=== PATIENT | male | born 1955 | race African-American/Black ===

== ENCOUNTER 2018-06-13 09:21 | Inpatient (IN) | payer MEDICARE ==
--- NOTE | 2018-06-07 11:23 | Diagnostic Imaging Report ---
EXAMINATION: CHEST 2 VIEWS INDICATION: Preop. Renal tumor. ^PREOP ORDER ^[id number] ^[id number] COMPARISON: None FINDINGS: TUBES and LINES: None. LUNGS: Lungs are well inflated. Mild chronic appearing changes in the lungs. There is no evidence of pneumonia or pulmonary edema. PLEURA: No pleural effusion or pneumothorax. HEART AND MEDIASTINUM: The cardiomediastinal silhouette is unremarkable. BONES AND SOFT TISSUES: No acute osseous lesion. Soft tissues are unremarkable. UPPER ABDOMEN: No free air under the diaphragm. IMPRESSION: No acute thoracic abnormality. Signed by: Dr. Eric Dejesus M.D. on 06/07/2018 11:19 AM
[2018-06-12 12:10] LABS: BASOPHILS % 0.4 % (0.0-1.0); EOSINOPHILS # (AUTO) 0.2 (0.0-0.4); EOSINOPHILS % 2.9 % (0.0-6.0); HEMATOCRIT 46.1 % (38.2-49.6); HEMOGLOBIN 15.6 g/dL (14.0-18.0); LYMPHOCYTES # (AUTO) 2.7 (1.0-3.2); LYMPHOCYTES % 39.6 % (18.0-39.1); MEAN CORPUSCULAR HEMOGLOBIN 31.7 pg (28-32); MEAN CORPUSCULAR HGB CONC 33.8 g/dL (31-35); MEAN CORPUSCULAR VOLUME 93.7 fL (81-99); MONOCYTES # (AUTO) 0.6 (0.2-0.8); MONOCYTES % 8.1 % (4.4-11.3); NEUTROPHILS # (AUTO) 3.3 (2.1-6.9); NEUTROPHILS % 48.9 % (38.7-80.0); PLATELET COUNT 200 x10e3/uL (140-360); RED BLOOD COUNT 4.92 x10e6/uL (4.3-5.7); RED CELL DISTRIBUTION WIDTH 12.1 % (11.7-14.4)
[2018-06-12 12:35] LABS: ANION GAP 13.8 mmol/L (8-16); BLOOD UREA NITROGEN 8 mg/dL (7-26); BUN/CREATININE RATIO 9 (6-25); CALCIUM 9.5 mg/dL (8.4-10.2); CARBON DIOXIDE 26 mmol/L (22-29); CHLORIDE 100 mmol/L (98-107); CREATININE, SERUM 0.89 mg/dL (0.72-1.25); EST GLOMERULAR FILTRATION RATE > 60 ML/MIN (60-); GLUCOSE 93 mg/dL (74-118); POTASSIUM 3.8 mmol/L (3.5-5.1); SODIUM 136 mmol/L (136-145)
[~2018-06-13] VITALS: Ht 182.9 cm; Wt 79.1 kg
[~2018-06-13 09:21] MED LIST: ACETAMINOPHEN650 MG PO; ADVAIR 250-501 EACH IH; DEXILANT60 MG PO; FAMOTIDINE20 MG PO; GABAPENTIN300 MG PO; IBUPROFEN400 MG PO; LACTULOSE20 GM/30 M PO; LISINOPRIL2.5 MG PO; NAPROXEN250 MG PO; PROVENTIL HFA6.7 GM IH; REVATIO20 MG PO; TAMSULOSIN HCL0.4 MG PO; ULTRAM50 MG PO
--- OUTSIDE RECORDS SUMMARY | 2018-06-13 09:23 | XMS REPORT | Clinical Summary ---
Author Author SHANICE FAGUO [facility] [employer] [facility] Address Unknown Phone Unavailable Care Team Providers Care Sales Supervisor Name Role Phone Abiodun Jaffe MD PCP Allergies No Known Allergies Medications End Date Status Medication Sig Dispensed Refills Start Date 03/12/2019 Active lisinopril Take 1 tablet 30 tablet 0 (PRINIVIL,ZESTRIL) 10 MG (10 mg total) 8 tablet by mouth daily. 03/12/2019 Active albuterol HFA (PROAIR Inhale 2 1 Inhaler 1 HFA) 90 mcg/actuation puffs by 8 inhaler mouth via inhaler every 4 (four) hours as needed (coughing). 03/17/2018 predniSONE (DELTASONE) 20 Take 3 15 tablet 0 MG tablet tablets (60 8 mg total) by mouth daily for 5 days. 03/17/2018 azithromycin (ZITHROMAX) Take 1 tablet 6 tablet 0 250 MG tablet (250 mg 8 total) by mouth daily for 5 days Take first 2 tablets together, then 1 every day until finished.. 03/22/2018 acetaminophen-codeine Take 1 tablet 30 tablet 0 (TYLENOL #3) 300-30 mg by mouth 8 per tablet every 6 (six) hours as needed for up to 10 days. Max Daily Amount: 4 tablets Active Problems Not on file Encounters Care Team Description Date Type Specialty Sanket Nayolr MD COPD with acute exacerbation (HCC) (Primary Dx); Atypical chest pain; Neck pain on left side; Cervical radiculopathy; Hypertensive urgency; Non compliance w medication regimen 03/12/2018 Emergency Emergency Medicine 03/12/2018 Orders Only General Internal Medicine 03/12/2018 Travel after 06/12/2017 Social History Date Tobacco Use Types Packs/Day Years Used Current Every Day Smoker Cigarettes 0.5 45 Smokeless Tobacco: Never Used Comments: trying to quit- down to 3-4 cig a day Alcohol Use Drinks/Week oz/Week Comments Yes 42 Cans of 25.2 6 pack beer a day beer Sex Assigned at Date Recorded Not on file Industry Job Start Date Occupation Not on file Not on file Not on file Travel End Travel History Travel Start No recent travel history available. Last Filed Vital Signs Time Taken Vital Sign Reading 03/12/2018 4:58 PM PUBLIC [employer]ATIONS [employer] Blood Pressure 149/90 03/12/2018 4:58 PM PUBLIC [employer]ATIONS WRITER Pulse 96 03/12/2018 2:15 PM PUBLIC [employer]ATIONS WRITER Temperature 36.7 C (98 F) 03/12/2018 4:58 PM PUBLIC [employer]ATIONS WRITER Respiratory Rate 26 03/12/2018 4:58 PM PUBLIC RELATIONS WRITER Oxygen Saturation 95% - Inhaled Oxygen - Concentration 03/12/2018 2:15 PM PUBLIC RELATIONS WRITER Weight 74.8 kg (165 lb) 03/12/2018 2:15 PM PUBLIC RELATIONS WRITER Height 182.9 cm (6') 03/12/2018 2:15 PM PUBLIC RELATIONS WRITER Body Mass Index 22.38 Plan of Treatment Not on file Procedures Comments Procedure Name Priority Date/Time Associated Diagnosis RHYTHM STRIP - SCAN 03/13/2018 3:04 PM PUBLIC RELATIONS WRITER B-TYPE NATRIURETIC FACTOR STAT 03/12/2018 (BNP) 3:16 PM PUBLIC RELATIONS WRITER TROPONIN I STAT 03/12/2018 3:16 PM PUBLIC RELATIONS WRITER BASIC METABOLIC PANEL (7) STAT 03/12/2018 3:16 PM PUBLIC RELATIONS WRITER XR CHEST 1 VIEW STAT 03/12/2018 PORTABLE/BEDSIDE 3:00 PM PUBLIC RELATIONS WRITER ED ECG INTERPRETATION Routine 03/12/2018 2:50 PM PUBLIC RELATIONS WRITER CBC W/PLT COUNT & AUTO STAT 03/12/2018 DIFFERENTIAL 2:46 PM PUBLIC RELATIONS WRITER CBC W/PLT COUNT & AUTO STAT 03/12/2018 DIFFERENTIAL 2:46 PM PUBLIC RELATIONS WRITER ECG 12-LEAD Routine 03/12/2018 2:09 PM PUBLIC RELATIONS WRITER Procedure Note - Interface, External Ris In - 03/12/2018 9:52 PM PUBLIC RELATIONS WRITER Ventricula r Rate 87 BPM Atrial Rate 87 BPM P-R Interval 122 ms QRS Duration 76 ms Q-T Interval 370 ms QTC Calculatio n(Bazett) 445 ms P [place] 86 degrees R [place] 86 degrees T [place] 81 degrees Normal sinus rhythm Right atrial enlargemen t Moderate voltage criteria for LVH, may be normal variant Borderline ECG No previous ECGs available ECG 12-LEAD STAT 03/12/2018 2:09 PM PUBLIC RELATIONS WRITER after 06/12/2017 Results * RHYTHM STRIP - SCAN (03/13/2018 3:04 PM PUBLIC RELATIONS WRITER) Narrative Performed At * Troponin I (03/12/2018 3:16 PM PUBLIC RELATIONS WRITER) Troponin I <0.01 0.00 - 0.03 ng/mL [facility] Specimen Blood - Arm, Right Performing Organization Address [facility] Phone Number [address] [address] [facility] * B-type Natriuretic Factor (BNP) (03/12/2018 3:16 PM PUBLIC RELATIONS WRITER) BNP 15 0 - 100 pg/mL [facility] Specimen Blood - Arm, Right Performing Organization Address [facility] Phone Number [address] [address] [facility] * Basic Metabolic Panel (03/12/2018 3:16 PM PUBLIC RELATIONS WRITER) Sodium 138 136 - 145 meq/L [facility] Potassium 3.9 3.5 - 5.1 meq/L [facility] Chloride 104 98 - 107 meq/L [facility] CO2 27 22 - 29 meq/L [facility] BUN 7 7 - 21 mg/dL [facility] Creatinine 0.87 0.57 - 1.25 mg/dL [facility] Glucose 88 70 - 105 mg/dL [facility] Calcium 9.4 8.4 - 10.2 mg/dL [facility] EGFR 108Comment: ESTIMATED GFR IS mL/min/1.73 sq m [facility] NOT ACCURATE CREATININE [facility] CLEARANCE IN PREDICTING GLOMERULAR FILTRATION RATE. ESTIMATED GFR IS NOT APPLICABLE FOR DIALYSIS PATIENTS. Specimen Blood - Arm, Right Performing Organization Address City/State/Zipcode Phone Number [facility] [address] [place] [address] [facility] * XR chest 1 view portable / bedside (03/12/2018 3:00 PM PUBLIC RELATIONS WRITER) Narrative Performed At [facility] TECHNIQUE: Frontal view of the chest. INDICATION: Shortness of breath. COMPARISON: None. FINDINGS: LINES/TUBES: None. LUNGS: The lungs are well inflated and clear. No consolidation or pulmonary edema. PLEURA: Mild blunting of the left costophrenic sulcus is favored to be due to pleural scarring. HEART AND MEDIASTINUM: The cardiomediastinal silhouette is within normal limits. Thoracic aorta is tortuous. SOFT TISSUES AND BONES: Unremarkable. IMPRESSION: The mild blunting of the left costophrenic sulcus is favored to be due to pleural scarring. A small left effusion is possible. Otherwise, no acute intrathoracic abnormality. Signed: Sj Zamudio MD Report Verified Date/Time:03/12/2018 15:46:55 Reading Location: [address] Body Reading Room Procedure Note Interface, External Ris In - 03/12/2018 3:49 PM PUBLIC RELATIONS WRITER FINAL REPORT TECHNIQUE: Frontal view of the chest. INDICATION: Shortness of breath. COMPARISON: None. FINDINGS: LINES/TUBES: None. LUNGS: The lungs are well inflated and clear. No consolidation or pulmonary edema. PLEURA: Mild blunting of the left costophrenic sulcus is favored to be due to pleural scarring. HEART AND MEDIASTINUM: The cardiomediastinal silhouette is within normal limits. Thoracic aorta is tortuous. SOFT TISSUES AND BONES: Unremarkable. IMPRESSION: The mild blunting of the left costophrenic sulcus is favored to be due to pleural scarring. A small left effusion is possible. Otherwise, no acute intrathoracic abnormality. Signed: Sj Zamudio MD Report Verified Date/Time: 03/12/2018 15:46:55 Reading Location: [facility] B1 C013Y CT Body Reading Room Performing Organization Address City/State/Zipcode Phone Number [facility] * ECG/EKG Interpretation (03/12/2018 2:50 PM PUBLIC RELATIONS WRITER) Narrative Performed At Sanket Naylor MD 03/12/20186:17 PM ECG/EKG Interpretation Date/Time: 03/12/2018 2:09 PM Performed by: Sanket Naylor MD Authorized by: Sanket Naylor MD The ECG was interpreted by ED physician. This ECG was not compared with previous ECG(s).The ECG is interpreted as sinus rhythm. Rate is normal rate. Heart rate is 87 BPM. Conduction: conduction normal. Other findings include: LVH. Clinical Impression: abnormal ECGECG reviewed and does not meet STEMI criteria. Patient tolerance: Patient tolerated the procedure well with no immediate complications * CBC with platelet count + automated diff (03/12/2018 2:46 PM PUBLIC RELATIONS WRITER) WBC 8.0 3.5 - 10.5 K/L [facility] RBC 5.04 4.63 - 6.08 M/L [facility] Hemoglobin 16.4 13.7 - 17.5 GM/DL [facility] Hematocrit 49.0 40.1 - 51.0 % [facility] MCV 97.2 (H) 79.0 - 92.2 fL [facility] MCH 32.5 (H) 25.7 - 32.2 pg [facility] MCHC 33.5 32.3 - 36.5 GM/DL [facility] RDW 12.0 11.6 - 14.4 % [facility] Platelets 229 150 - 450 K/CU MM [facility] MPV 10.3 9.4 - 12.4 fL [facility] nRBC 0 0 - 0 /100 WBC [facility] % Neutros 57 % [facility] % Lymphs 30 % [facility] % Monos 8 % [facility] % Eos 3 % [facility] % Baso 1 % [facility] # Neutros 4.59 1.78 - 5.38 K/L [facility] # Lymphs 2.44 1.32 - 3.57 K/L [facility] # Monos 0.65 0.30 - 0.82 K/L [facility] # Eos 0.27 0.04 - 0.54 K/L [facility] # Baso 0.07 0.01 - 0.08 K/L [facility] Immature 0 0 - 1 % [facility] Granulocytes-Relative [facility] Specimen Blood - Arm, Right Performing Organization Address City/State/Zipcode Phone Number [facility] [address] [place] [address] [facility] * ECG 12 lead (03/12/2018 2:09 PM PUBLIC RELATIONS WRITER) Narrative Performed At Ventricular Rate 87 BPM [facility] Atrial Rate 87 BPM P-R Interval 122 ms QRS Duration 76 ms Q-T Interval 370 ms QTC Calculation(Bazett) 445 ms P [place] 86 degrees R [place] 86 degrees T [place] 81 degrees Normal sinus rhythm Right atrial enlargement Moderate voltage criteria for LVH, may be normal variant Borderline ECG No previous ECGs available Confirmed by MD Delgado Mahboob ([id number]) on 03/13/2018 12:42:19 PM Procedure Note Interface, External Ris In - 03/13/2018 12:42 PM PUBLIC RELATIONS WRITER Ventricular Rate 87 BPM Atrial Rate 87 BPM P-R Interval 122 ms QRS Duration 76 ms Q-T Interval 370 ms QTC Calculation(Bazett) 445 ms P [place] 86 degrees R [place] 86 degrees T [place] 81 degrees Normal sinus rhythm Right atrial enlargement Moderate voltage criteria for LVH, may be normal variant Borderline ECG No previous ECGs available Confirmed by MD Delgado Mahboob ([id number]) on 03/13/2018 12:42:19 PM Performing Organization Address City/State/Zipcode Phone Number [facility] after 06/12/2017 Insurance Payer Benefit Subscriber ID Type Phone Address Plan / Group MEDICARE MEDICARE xxxxxxxxxxx Medicare PART B MEDICAID MEDICAID xxxxxxxxx Medicaid [facility] MED[facility] MEDICARE A xxxxxxxxxxx Medicare B
--- OUTSIDE RECORDS SUMMARY | 2018-06-13 09:23 | XMS REPORT | Clinical Summary ---
Author Author [facility] Organization [facility] Address Unknown Phone Unavailable Care Team Providers Care Oncology Specialist Name Role Phone Lisa Levy MD PCP Allergies No Known Allergies Medications End Date Status Medication Sig Dispensed Refills Start Date Active tamsulosin (FLOMAX) 0.4 Take 1 30 capsule 6 mg extended release capsule by 7 capsuleIndications: mouth daily. Benign non-nodular prostatic hyperplasia with lower urinary tract symptoms Active dexlansoprazole Take 1 30 capsule 2 (DEXILANT) 60 mg delayed capsule by 7 release mouth daily. capsuleIndications: Abdominal pain, epigastric Active lactulose (CONSTULOSE) 10 Take 30 mL by 946 mL 0 gram/15 mL oral mouth at 7 solutionIndications: bedtime Bloated abdomen, Pain of nightly For upper abdomen constipation and bloating. Active acetaminophen (TYLENOL) Take 1 tablet 30 tablet 0 500 mg tablet by mouth 7 every 6 hours as needed for Pain. Active naproxen (NAPROSYN) 500 Take 1 tablet 60 tablet 2 mg tabletIndications: by mouth 2 7 Chronic bilateral low times daily back pain without (with meals). sciatica Active famotidine (PEPCID) 20 mg Take 1 tablet 180 tablet 1 tabletIndications: by mouth 2 7 Gastritis and times daily. gastroduodenitis Active lisinopril (PRINIVIL) 5 Take 1 tablet 90 tablet 1 mg tabletIndications: by mouth 8 Essential hypertension, daily. benign Active sildenafil citrate Take 1 tablet 10 tablet 1 (VIAGRA) 100 mg by mouth as 8 tabletIndications: needed for Erectile dysfunction, Erectile unspecified erectile Dysfunction. dysfunction type Active albuterol 90 Inhale 2 20.1 g 6 mcg/actuation Puffs by 8 inhalerIndications: COPD, mouth 4 times severe, Pulmonary daily as emphysema, unspecified needed for emphysema type Wheezing. Active ibuprofen (MOTRIN) 600 mg Take 1 tablet 60 tablet 1 tabletIndications: by mouth 8 Chronic right-sided low every 8 hours back pain without as needed for sciatica Pain. Active gabapentin (NEURONTIN) Take 1 30 capsule 1 300 mg capsule by 8 capsuleIndications: mouth 3 times Chronic right-sided low daily. back pain without sciatica Active fluticasone-salmeterol Inhale 1 Puff 180 Each 6 (ADVAIR DISKUS) 250-50 by mouth 2 8 mcg/dose diskus times daily. inhalerIndications: COPD, severe, Pulmonary emphysema, unspecified emphysema type Active traMADol (ULTRAM) 50 mg Take 1 tablet 40 tablet 2 tabletIndications: DDD by mouth 8 (degenerative disc every 8 hours disease), cervical as needed for Pain. 03/21/2018 Discontinued ibuprofen (MOTRIN) 600 mg Take 1 tablet 60 tablet 1 tabletIndications: by mouth 7 Chronic right-sided low every 8 hours back pain without as needed for sciatica Pain. 08/02/2017 Discontinued traMADol (ULTRAM) 50 mg Take 1 tablet 30 tablet 0 tabletIndications: Mass by mouth 8 of skin of back every 6 hours as needed for Pain. 08/02/2017 Discontinued fluticasone-salmeterol Inhale 1 Puff 180 Each 3 (ADVAIR DISKUS) 250-50 by mouth 2 8 mcg/dose diskus times daily. inhalerIndications: COPD, severe, Pulmonary emphysema, unspecified emphysema type 08/02/2017 Discontinued albuterol (VENTOLIN Inhale 2 20.1 g 1 HFA,PROVENTIL HFA,PROAIR Puffs by 8 HFA) 90 mcg/actuation mouth 4 times inhalerIndications: COPD, daily as severe, Pulmonary needed for emphysema, unspecified Wheezing. emphysema type 09/08/2017 Discontinued albuterol (VENTOLIN Inhale 2 20.1 g 1 HFA,PROVENTIL HFA,PROAIR Puffs by 8 HFA) 90 mcg/actuation mouth 4 times inhalerIndications: COPD, daily as severe, Pulmonary needed for emphysema, unspecified Wheezing. emphysema type 09/08/2017 Discontinued fluticasone-salmeterol Inhale 1 Puff 180 Each 3 (ADVAIR DISKUS) 250-50 by mouth 2 8 mcg/dose diskus times daily. inhalerIndications: COPD, severe, Pulmonary emphysema, unspecified emphysema type 04/04/2018 Discontinued traMADol (ULTRAM) 50 mg Take 1 tablet 40 tablet 2 tabletIndications: Chest by mouth 8 wall pain every 8 hours as needed for Pain. 12/01/2017 Discontinued fluticasone-salmeterol Inhale 1 Puff 180 Each 6 (ADVAIR DISKUS) 250-50 by mouth 2 8 mcg/dose diskus times daily. inhalerIndications: COPD, severe, Pulmonary emphysema, unspecified emphysema type 12/01/2017 Discontinued albuterol (VENTOLIN Inhale 2 20.1 g 6 HFA,PROVENTIL HFA,PROAIR Puffs by 8 HFA) 90 mcg/actuation mouth 4 times inhalerIndications: COPD, daily as severe, Pulmonary needed for emphysema, unspecified Wheezing. emphysema type 03/21/2018 Discontinued fluticasone-salmeterol Inhale 1 Puff 180 Each 6 (ADVAIR DISKUS) 250-50 by mouth 2 8 mcg/dose diskus times daily. 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 Pulmonary emphysema 06/16/2017 Mass on back 04/27/2017 Overview: Added automatically from request for surgery [id number] Asbestos exposure 07/11/2016 Decreased strength 11/11/2015 Cocaine abuse 10/26/2015 Overview: Positive drug screen, September 2015 HNP (herniated nucleus pulposus), lumbar 12/05/2013 Foraminal stenosis of lumbosacral region 12/05/2013 Spondylosis of lumbosacral joint 12/05/2013 SI (sacroiliac) joint dysfunction 12/05/2013 Back pain, chronic 11/27/2013 Drug-seeking behavior 11/27/2013 Elevated blood pressure reading without diagnosis of hypertension 02/26/2010 Sebaceous cyst 02/26/2010 Overview: back Encounters Care Team Description Date Type Specialty Abdulazizshane Anny Appointment Related Questions (called pt no answer pt is already schedule for MD visit but not CT will need to schedule) 04/10/2018 Telephone [facility] Lisa Levy MD Essential hypertension, benign (Primary Dx); COPD, severe; DDD (degenerative disc disease), cervical; Prediabetes; Renal cell carcinoma of right kidney 04/04/2018 Office Visit Family Practice Lisa Levy MD Appointment Related Questions (Appointment Reminder - CONFIRMED) 04/04/2018 Telephone [facility] 03/30/2018 Travel Lupe Bloom MD Screening for colon cancer 03/29/2018 Orders Only [facility] Lupe Bloom MD Need for vaccination (Primary Dx); Chronic right-sided low back pain without sciatica; Screening for colon cancer; COPD, severe; Pulmonary emphysema, unspecified emphysema type 03/21/2018 Office Visit [facility] Viktor Gloria MD Renal cell carcinoma of right kidney (Primary Dx); NO SHOW ENCOUNTER 03/09/2018 Office Visit Urology Lisa Levy MD Chest wall pain 02/03/2018 Refill [facility] Abiodun Miller MD NO SHOW ENCOUNTER (Primary Dx) 01/09/2018 Office Visit Urology Sherron Patton RN 12/19/2017 Clinical Case Mgt Katie Dean MD Multiple pulmonary nodules (Primary Dx); Pulmonary sequestration; COPD, severe; Current smoker; Renal cell carcinoma, unspecified laterality; Pulmonary emphysema, unspecified emphysema type 12/01/2017 Office Visit Pulmonology Johann Roca MD Whigham, Cliff, MD Renal mass, right 11/21/2017 Hospital Encounter Johann Roca MD 11/21/2017 Hospital Lab Encounter Abiodun Miller MD Renal mass, right (Primary Dx) 11/07/2017 Office Visit Urology José Cheek MD Estrada-Y-Martin, Rosa M, MD Pulmonary sequestration (Primary Dx); Stage 3 severe COPD by GOLD classification; Cocaine abuse; Asbestos exposure; Renal mass; COPD, severe; Pulmonary emphysema, unspecified emphysema type 09/08/2017 Office Visit Pulmonology Lisa Levy MD 09/07/2017 Hospital Encounter 08/15/2017 Ancillary Radiology Procedure Lisa Levy MD Essential hypertension, benign (Primary Dx); COPD, severe; Pulmonary emphysema, unspecified emphysema type; Abnormal chest CT; Erectile dysfunction, unspecified erectile dysfunction type; Prediabetes; Chest wall pain; Colon cancer screening 08/02/2017 Office Visit Family Practice Katie Dean MD COPD, severe (Primary Dx); Pulmonary sequestration; Renal mass; Cocaine abuse; Asbestos exposure; Sebaceous cyst; Pulmonary emphysema, unspecified emphysema type 06/16/2017 Office Visit Pulmonology Lisa Levy MD Prediabetes (Primary Dx) 06/13/2017 Orders Only Family Practice after 06/12/2017 Immunizations Name Dates Previously Given Next Due Influenza Vaccine 03/31/2016 Influenza Vaccine, 03/14/2017 Seasonal, Injectable Influenza, 03/21/2018 Vaccine<FLUCELVAX>(Multi- Dose) Pneumoccoccal 01/02/2014 Family History Medical History Relation Name Comments Cancer Father Heart Mother Hypertension Mother Diabetes Sister Other Sister Relation Name Status Comments Father Mother heart attack (Age 65) Sister Social History Date Tobacco Use Types Packs/Day Years Used Current Every Day Smoker 0.5 Smokeless Tobacco: Never Used Tobacco Cessation: Ready to Quit: Yes Alcohol Use Drinks/Week oz/Week Comments Yes Sex Assigned at Date Recorded Not on file Industry Job Start Date Occupation Not on file Not on file Not on file Travel End Travel History Travel Start No recent travel history available. Last Filed Vital Signs Time Taken Vital Sign Reading 04/04/2018 9:30 AM [employer] [facility] Blood Pressure 129/89 04/04/2018 9:30 AM [employer] Pulse 100 04/04/2018 9:30 AM [employer] Temperature 36.7 C (98 F) 04/04/2018 9:30 AM [employer] Respiratory Rate 22 12/01/2017 12:21 PM CDT Oxygen Saturation 97% - Inhaled Oxygen - Concentration 04/04/2018 9:30 AM [employer] Weight 76.7 kg (169 lb) 04/04/2018 9:30 AM [employer] [facility] Height 182.9 cm (6') 04/04/2018 9:30 AM [employer] [facility] Body Mass Index 22.92 Plan of Treatment Health Maintenance Due Date Last Done Comments Colorectal Cancer Scrn 03/30/2019 03/30/2018, 05/17/2016 Annual (FIT/FOBT) Age 50 to 75 IMM Influenza Seasonal Completed 03/21/2018, 03/14/2017 Oct to June (>/=19 yrs) Procedures Comments Procedure Name Priority Date/Time Associated Diagnosis HEMOGLOBIN A1C Routine 04/04/2018 Prediabetes 10:48 AM [employer] TSH Routine 04/04/2018 Essential hypertension, 10:48 AM [employer] [facility] benign BASIC METABOLIC PANEL Routine 04/04/2018 Essential hypertension, 10:48 AM [employer] benign Prediabetes LIVER PROFILE Routine 04/04/2018 Essential hypertension, 10:48 AM [employer] benign LIPID PROFILE Routine 04/04/2018 Essential hypertension, 10:48 AM [employer] benign CBC/DIFF Routine 04/04/2018 Essential hypertension, 10:48 AM [employer] benign Renal cell carcinoma of right kidney OCCULT BLOOD ICT Routine 03/30/2018 Screening for colon 12:17 PM [employer] [facility] cancer FNA W/IMAGE Routine 11/21/2017 Renal mass, right 12:13 PM CDT BIOPSY OF Routine 11/21/2017 Renal mass, right KIDNEY,PERCUTANEOUS 12:13 PM CDT IR U/S GUIDED NEEDLE Routine 11/21/2017 Renal mass, right BIOPSY 12:13 PM CDT [facility] SURGICAL PATHOLOGY Routine 11/21/2017 12:00 PM CDT PT/INR Routine 11/21/2017 8:05 AM CDT CBC Routine 11/21/2017 8:05 AM CDT [facility] CYTOLOGY Routine 11/21/2017 12:00 AM CDT URINE CULTURE Routine 11/07/2017 Renal mass, right 1:54 PM CDT UREA NITROGEN/CREA Routine 09/09/2017 Renal mass, left 7:17 AM CDT TRANSTHORACIC ECHO (TTE) 09/07/2017 COPD, severe 1:55 PM CDT Pulmonary emphysema, unspecified emphysema type Chest wall pain CT ABDOMEN W AND W/O Routine 08/15/2017 Renal mass CONTRAST - KIDNEY 12:36 PM CDT CREATININE POC Routine 08/15/2017 11:48 AM CDT after 06/12/2017 Results * HEMOGLOBIN A1C (04/04/2018 10:48 AM [employer] [facility]) Hemoglobin A1c 6.3 (H) 4.3 - 6.1 % [facility]IC IMMUNOLOGY Est Average 134.1 mg/dL [facility] Gluc IMMUNOLOGY Specimen Blood Performing Organization Address [facility] Phone Number [facility] * TSH (04/04/2018 10:48 AM [employer] [facility]) TSH 0.54 (L) 0.57 - 3.74 uIU/mL BT MAIN-STATION 1 Specimen Blood Performing Organization Address [facility] Phone Number [facility] BT MAIN-STATION 1 * LIVER PROFILE (04/04/2018 10:48 AM [facility]) T Protein 7.3 6.0 - 8.3 g/dL BT MAIN-STATION 1 Albumin 4.2 4.2 - 5.5 g/dL BT MAIN-STATION 1 T Bilirubin 0.5 0.2 - 1.2 mg/dL BT MAIN-STATION 1 Alk Phos 59 34 - 104 U/L BT MAIN-STATION 1 AST 50 (H) 13 - 39 U/L BT MAIN-STATION 1 ALT 58 (H) 7 - 52 U/L BT MAIN-STATION 1 D Bilirubin 0.1 0.0 - 0.2 mg/dL BT MAIN-STATION 1 Specimen Blood Performing Organization Address [facility] Phone Number [facility] BT MAIN-STATION 1 * LIPID PROFILE (04/04/2018 10:48 AM [facility]) Cholesterol 192 mg/dL BT MAIN-STATION Comment: 1 REFERENCE RANGE: Desirable: <200 mg/dL Borderline: 200-240 mg/dL High Risk: >240 mg/dL Triglyceride 222 (H) <150 mg/dL BT MAIN-STATION Comment: 1 REFERENCE RANGE: Normal: <150 mg/dL Borderline High: 150-199 mg/dL High: 200-499 mg/dL Very High: >qx=392 mg/dL HDL 48 mg/dL BT MAIN-STATION Comment: 1 Increased CHD risk: <40 mg/dL Decreased CHD risk: >60 mg/dL LDL 100 mg/dL BT MAIN-STATION Comment: 1 REFERENCE RANGE: Optimal: <100 mg/dL Near Optimal: 100-129 mg/dL Borderline High: 130-159 mg/dL High: 160-189 mg/dL Very High: >sd=721 mg/dL Specimen Blood Performing Organization Address City/State/Zipcode Phone Number [facility] MAIN-STATION 1 * CBC/DIFF (04/04/2018 10:48 AM [facility]) WBC 5.7 4.5 - 12.0 K/uL BT MAIN-STATION 2 RBC 5.31 4.60 - 6.20 M/uL BT MAIN-STATION 2 Hemoglobin 16.7 14.0 - 18.0 g/dL BT MAIN-STATION 2 Hematocrit 51.9 40.0 - 54.0 % BT MAIN-STATION 2 MCV 98 (H) 82 - 92 fL BT MAIN-STATION 2 MCH 31.5 (H) 27.0 - 31.0 pg BT MAIN-STATION 2 MCHC 32.2 32.0 - 36.0 g/dL BT MAIN-STATION 2 RDW 44.2 (H) 35.1 - 43.9 fL BT MAIN-STATION 2 Platelet 218 150 - 400 K/uL BT MAIN-STATION 2 Mean Platelet 11.7 9.4 - 12.4 fL BT MAIN-STATION Volume 2 Percent NRBC 0.0 BT MAIN-STATION 2 Absolute NRBC 0.00 BT MAIN-STATION 2 Neutrophil 43.5 34.0 - 67.9 % BT MAIN-STATION 2 Lymphocyte 38.9 21.8 - 50.0 % BT MAIN-STATION 2 Monocyte 9.1 5.3 - 12.0 % BT MAIN-STATION 2 Eosinophil 7.4 (H) 0.8 - 5.0 % BT MAIN-STATION 2 Basophil 0.9 0.2 - 1.2 % BT MAIN-STATION 2 Pct Immat Gran 0.2 0.0 - 0.5 BT MAIN-STATION 2 Neutrophil, Abs 2.48 1.78 - 5.36 K/uL BT MAIN-STATION 2 Lymphocyte, Abs 2.22 1.32 - 3.57 K/uL BT MAIN-STATION 2 Monocyte, Abs 0.52 0.30 - 0.82 K/uL BT MAIN-STATION 2 Eosinophil, Abs 0.42 0.04 - 0.54 K/uL BT MAIN-STATION 2 Basophil, Abs 0.05 0.01 - 0.08 K/uL BT MAIN-STATION 2 Absol Immat 0.01 0.00 - 0.03 K/uL BT MAIN-STATION Gran 2 Specimen Blood Performing Organization Address [facility] * BASIC METABOLIC PANEL (04/04/2018 10:48 AM [employer] [facility]) CO2 32 (H) 21 - 31 mmol/L BT MAIN-STATION 1 Chloride 99 98 - 107 mmol/L BT MAIN-STATION 1 Potassium 4.9 3.5 - 5.1 mmol/L BT MAIN-STATION 1 Sodium 138 136 - 145 mmol/L BT MAIN-STATION 1 Glucose 101 70 - 110 mg/dL BT MAIN-STATION 1 Urea Nitrogen 13 7 - 25 mg/dL BT MAIN-STATION 1 Creatinine 1.10 0.7 - 1.3 mg/dL BT MAIN-STATION 1 Anion Gap 7 BT MAIN-STATION 1 Calcium 10.0 8.6 - 10.3 mg/dL BT MAIN-STATION 1 GFR, Estimated >60 mL/min/1.73 m2 BT MAIN-STATION 1 GFR, Estim, >60 mL/min/1.73 m2 BT MAIN-STATION Afr-Am 1 Specimen Blood Performing Organization Address [facility] Phone Number [facility] MAIN-STATION 1 * OCCULT BLOOD ICT (03/30/2018 12:17 PM [facility]) Occult Blood [facility] Specimen Stool Performing Organization Address [facility] Phone Number [facility] * IR U/S GUIDED NEEDLE BIOPSY (11/21/2017 12:13 PM CDT) Addenda Addendum by Luis Carlos Adkins MD on 03/28/2018 1:07 PM Blood Products Administered: None Implants/Grafts: None Specimens Removed: FNA and Core Bx Signed By: Luis Carlos Adkins DO, 03/28/2018 1:07 PM Impressions Performed At IMPRESSION: SMS Successful ultrasound guided core biopsies and FNA of the right renal inferior pole mass. Dictated By: Dennis Soler MD, 11/21/2017 5:31 PM I have reviewed the study and agree with the findings in this report. 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 Dennis Soler MD Assistants: None Staff: Dr. Luis Carlos Adkins DO Preoperative diagnosis: right renal inferior pole mass Post operative diagnosis: right renal inferior pole mass Conscious Sedation: Versed 1.5 mg and Fentanyl 75 mcg IV. Patient was continuously monitored by the dedicated IR nurse. Fluoro time: None Contrast used: None EBL: less than 5 ml Condition at procedure completion: Stable Disposition: PACU then home CPT procedure code: 31990 S&I code: [id number] Sedation code: [id number] DISCUSSION: Timeout was done, and the patient and procedure to be performed was verified. The right posterior flank of the abdomen was prepped and draped in the usual sterile fashion. 1% lidocaine was infiltrated into the subcutaneous tissues and up to the renal capsule for local anesthesia. A 16 gauge coaxial introducer needle was passed into the kidney under ultrasound guidance. A 18 gauge, 15 cm length, 2 cm throw [place] core biopsy needle was passed through the coaxial introducer needle to obtain FNA and5 core biopsies of the inferior pole mass of the kidney under ultrasound guidance. Gelfoam was injected at the biopsy site prior to removal of the coaxial introducer needle for improved hemostasis. The samples were sent to pathology for evaluation. There were no immediate complications during the procedure. Dr. Luis Carlos Adkins DO was present throughout the procedure. 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 Dennis Soler MD Assistants: None Staff: Dr. Luis Carlos Adkins DO Preoperative diagnosis: right renal inferior pole mass Post operative diagnosis: right renal inferior pole mass Conscious Sedation: Versed 1.5 mg and Fentanyl 75 mcg IV. Patient was continuously monitored by the dedicated IR nurse. Fluoro time: None Contrast used: None EBL: less than 5 ml Condition at procedure completion: Stable Disposition: PACU then home CPT procedure code: 53586 S&I code: [id number] Sedation code: [id number] DISCUSSION: Timeout was done, and the patient and procedure to be performed was verified. The right posterior flank of the abdomen was prepped and draped in the usual sterile fashion. 1% lidocaine was infiltrated into the subcutaneous tissues and up to the renal capsule for local anesthesia. A 16 gauge coaxial introducer needle was passed into the kidney under ultrasound guidance. A 18 gauge, 15 cm length, 2 cm throw [place] core biopsy needle was passed through the coaxial introducer needle to obtain FNA and 5 core biopsies of the inferior pole mass of the kidney under ultrasound guidance. Gelfoam was injected at the biopsy site prior to removal of the coaxial introducer needle for improved hemostasis. The samples were sent to pathology for evaluation. There were no immediate complications during the procedure. Dr. Luis Carlos Adkins DO was present throughout the procedure. IMPRESSION IMPRESSION: Successful ultrasound guided core biopsies and FNA of the right renal inferior pole mass. Dictated By: Dennis Soler MD, 11/21/2017 5:31 PM I have reviewed the study and agree with the findings in this report. Signed By: Luis Carlos Adkins DO, 11/22/2017 8:34 AM Performing Organization Address City/State/Zipcode Phone Number [facility] * BIOPSY OF KIDNEY,PERCUTANEOUS (11/21/2017 12:13 PM CDT) Addenda Addendum by Luis Carlos Adkins MD on 03/28/2018 1:07 PM Blood Products Administered: None Implants/Grafts: None Specimens Removed: FNA and Core Bx Signed By: Luis Carlos Adkins DO, 03/28/2018 1:07 PM Impressions Performed At IMPRESSION: [facility] Successful ultrasound guided core biopsies and FNA of the right renal inferior pole mass. Dictated By: Dennis Soler MD, 11/21/2017 5:31 PM I have reviewed the study and agree with the findings in this report. 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 Dennis Soler MD Assistants: None Staff: Dr. Luis Carlos Adkins DO Preoperative diagnosis: right renal inferior pole mass Post operative diagnosis: right renal inferior pole mass Conscious Sedation: Versed 1.5 mg and Fentanyl 75 mcg IV. Patient was continuously monitored by the dedicated IR nurse. Fluoro time: None Contrast used: None EBL: less than 5 ml Condition at procedure completion: Stable Disposition: PACU then home CPT procedure code: 33632 S&I code: [id number] Sedation code: [id number] DISCUSSION: Timeout was done, and the patient and procedure to be performed was verified. The right posterior flank of the abdomen was prepped and draped in the usual sterile fashion. 1% lidocaine was infiltrated into the subcutaneous tissues and up to the renal capsule for local anesthesia. A 16 gauge coaxial introducer needle was passed into the kidney under ultrasound guidance. A 18 gauge, 15 cm length, 2 cm throw [place] core biopsy needle was passed through the coaxial introducer needle to obtain FNA and5 core biopsies of the inferior pole mass of the kidney under ultrasound guidance. Gelfoam was injected at the biopsy site prior to removal of the coaxial introducer needle for improved hemostasis. The samples were sent to pathology for evaluation. There were no immediate complications during the procedure. Dr. Luis Carlos Adkins DO was present throughout the procedure. 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 Dennis Soler MD Assistants: None Staff: Dr. Luis Carlos Adkins DO Preoperative diagnosis: right renal inferior pole mass Post operative diagnosis: right renal inferior pole mass Conscious Sedation: Versed 1.5 mg and Fentanyl 75 mcg IV. Patient was continuously monitored by the dedicated IR nurse. Fluoro time: None Contrast used: None EBL: less than 5 ml Condition at procedure completion: Stable Disposition: PACU then home CPT procedure code: 00292 S&I code: 46883 Sedation code: [id number] DISCUSSION: Timeout was done, and the patient and procedure to be performed was verified. The right posterior flank of the abdomen was prepped and draped in the usual sterile fashion. 1% lidocaine was infiltrated into the subcutaneous tissues and up to the renal capsule for local anesthesia. A 16 gauge coaxial introducer needle was passed into the kidney under ultrasound guidance. A 18 gauge, 15 cm length, 2 cm throw [place] core biopsy needle was passed through the coaxial introducer needle to obtain FNA and 5 core biopsies of the inferior pole mass of the kidney under ultrasound guidance. Gelfoam was injected at the biopsy site prior to removal of the coaxial introducer needle for improved hemostasis. The samples were sent to pathology for evaluation. There were no immediate complications during the procedure. Dr. Luis Carlos Adkins DO was present throughout the procedure. IMPRESSION IMPRESSION: Successful ultrasound guided core biopsies and FNA of the right renal inferior pole mass. Dictated By: Dennis Soler MD, 11/21/2017 5:31 PM I have reviewed the study and agree with the findings in this report. Signed By: Luis Carlos Adkins DO, 11/22/2017 8:34 AM Performing Organization Address City/State/Zipcode Phone Number SMS * FNA W/IMAGE (11/21/2017 12:13 PM CDT) Addenda Addendum by Luis Carlos Adkins MD on 03/28/2018 1:07 PM Blood Products Administered: None Implants/Grafts: None Specimens Removed: FNA and Core Bx Signed By: Luis Carlos Adkins DO, 03/28/2018 1:07 PM Impressions Performed At IMPRESSION: SMS Successful ultrasound guided core biopsies and FNA of the right renal inferior pole mass. Dictated By: Dennis Soler MD, 11/21/2017 5:31 PM I have reviewed the study and agree with the findings in this report. 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 Dennis Soler MD Assistants: None Staff: Dr. Luis Carlos Adkins DO Preoperative diagnosis: right renal inferior pole mass Post operative diagnosis: right renal inferior pole mass Conscious Sedation: Versed 1.5 mg and Fentanyl 75 mcg IV. Patient was continuously monitored by the dedicated IR nurse. Fluoro time: None Contrast used: None EBL: less than 5 ml Condition at procedure completion: Stable Disposition: PACU then home CPT procedure code: 80700 S&I code: 47521 Sedation code: 49864-43156 DISCUSSION: Timeout was done, and the patient and procedure to be performed was verified. The right posterior flank of the abdomen was prepped and draped in the usual sterile fashion. 1% lidocaine was infiltrated into the subcutaneous tissues and up to the renal capsule for local anesthesia. A 16 gauge coaxial introducer needle was passed into the kidney under ultrasound guidance. A 18 gauge, 15 cm length, 2 cm throw Cook core biopsy needle was passed through the coaxial introducer needle to obtain FNA and5 core biopsies of the inferior pole mass of the kidney under ultrasound guidance. Gelfoam was injected at the biopsy site prior to removal of the coaxial introducer needle for improved hemostasis. The samples were sent to pathology for evaluation. There were no immediate complications during the procedure. Dr. Luis Carlos Adkins DO was present throughout the procedure. 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 Dennis Soler MD Assistants: None Staff: Dr. Luis Carlos Adkins DO Preoperative diagnosis: right renal inferior pole mass Post operative diagnosis: right renal inferior pole mass Conscious Sedation: Versed 1.5 mg and Fentanyl 75 mcg IV. Patient was continuously monitored by the dedicated IR nurse. Fluoro time: None Contrast used: None EBL: less than 5 ml Condition at procedure completion: Stable Disposition: PACU then home CPT procedure code: 97525 S&I code: 97207 Sedation code: [id number] DISCUSSION: Timeout was done, and the patient and procedure to be performed was verified. The right posterior flank of the abdomen was prepped and draped in the usual sterile fashion. 1% lidocaine was infiltrated into the subcutaneous tissues and up to the renal capsule for local anesthesia. A 16 gauge coaxial introducer needle was passed into the kidney under ultrasound guidance. A 18 gauge, 15 cm length, 2 cm throw Cook core biopsy needle was passed through the coaxial introducer needle to obtain FNA and 5 core biopsies of the inferior pole mass of the kidney under ultrasound guidance. Gelfoam was injected at the biopsy site prior to removal of the coaxial introducer needle for improved hemostasis. The samples were sent to pathology for evaluation. There were no immediate complications during the procedure. Dr. Luis Carlos Adkins DO was present throughout the procedure. IMPRESSION IMPRESSION: Successful ultrasound guided core biopsies and FNA of the right renal inferior pole mass. Dictated By: Dennis Soler MD, 11/21/2017 5:31 PM I have reviewed the study and agree with the findings in this report. 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, WHO/ISUP GRADE 2 (SEE COMMENT) Jessica Burrell M.D./[id number] Staff Pathologist Narrative Performed At Name LAW SADLER [facility] Date of 1955 Hospital Number [id number] Location [address] Post Anesthesia SURGICAL PATHOLOGY Collected:11/21/2017 12:00 Received: 14:05 PATHOLOGIC DIAGNOSIS RENAL MASS, RIGHT, IMAGE GUIDED BIOPSY: - 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 The tumor cells lining the papillae are cuboidal to columnar with clear to eosinophilic cytoplasm and round medium sized nuclei with nucleoli prominent at high-power magnification. No necrosis, sarcomatoid or rhabdoid features are identified. Immunohistochemical stains were performed for further characterization; all controls are appropriate. 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 Intradepartmental consultation: Slick Parnell MD has reviewed this case and concurs with the findings. Pertinent Clinical Information Renal cell carcinoma Clinical Impression:Suspicious for renal cell carcinoma Gross Description Specimen Material: Right renal mass biopsy The case is received in one part labeled with the patient's name "LAW SADLER", medical record number and given accession number [id number], and it is accompanied by a requisition form labeled with the same name and accession number. Received in formalin labeled "RIGHT RENAL MASS BIOPSY" are multiple dunn-white to red-brown cylindrical tissues ranging from 0.3 cm in length to less than 0.1 cm in diameter to 1.1 cm in length to less than 0.1 cm in diameter.The specimen is submitted in toto following filtration in cassettes A1-A2. /[id number] [employer] Microscopic Description Performed. I have personally reviewed the relevant preparations for the specimen(s), reviewedand agreed with the resident/fellow's interpretation. Electronically Signed Out Jessica Burrell M.D./[id number] Staff Pathologist Performing Organization Address City/[facility] Phone Number [place] * PT/INR (11/21/2017 8:05 AM CDT) PT 12.6 11.8 - 15.0 Seconds BT MAIN-STATION 3 INR 0.9 BT MAIN-STATION SUGGESTED THERAPEUTIC RANGES: 3 INR 2.0-3.0 for MODERATE INTENSITY ANTICOAGULATION INR 2.5-3.5 for HIGH INTENSITY ANTICOAGULATION Specimen Blood Performing Organization Address [facility] Phone Number MISYS BT MAIN-STATION 3 * CBC (11/21/2017 8:05 AM CDT) WBC 6.3 4.5 - 12.0 K/uL BT MAIN-STATION 2 RBC 4.79 4.60 - 6.20 M/uL BT MAIN-STATION 2 Hemoglobin 15.1 14.0 - 18.0 g/dL BT MAIN-STATION 2 Hematocrit 46.6 40.0 - 54.0 % BT MAIN-STATION 2 MCV 97 (H) 82 - 92 fL BT MAIN-STATION 2 MCH 31.5 (H) 27.0 - 31.0 pg BT MAIN-STATION 2 MCHC 32.4 32.0 - 36.0 g/dL BT MAIN-STATION 2 RDW 44.4 (H) 35.1 - 43.9 fL BT MAIN-STATION 2 Platelet 200 150 - 400 K/uL BT MAIN-STATION 2 Mean Platelet 10.9 9.4 - 12.4 fL BT MAIN-STATION Volume 2 Percent NRBC 0.0 BT MAIN-STATION 2 Absolute NRBC 0.00 BT MAIN-STATION 2 Specimen Blood Performing Organization Address [facility] Phone Number MISYS BT MAIN-STATION 2 * BTGH CYTOLOGY (11/21/2017 12:00 AM CDT) HX FINAL Kidney mass, right inferior COPATH DIAGNOSIS pole, deep fine needle aspiration: Specimen satisfactory for evaluation POSITIVE FOR MALIGNANCY (SEE COMMENT) Narrative Performed At Name LAW S[facility]ER Date of 1955 Hospital Number [id number] Location [address] Post Anesthesia CYTOPATHOLOGY Collected:11/21/2017 00:00 Received: 13:03 FINAL DIAGNOSIS Kidney mass, right inferior pole, deep fine needle aspiration: Specimen satisfactory for evaluation POSITIVE FOR MALIGNANCY (SEE COMMENT) Comment FNA of the right kidney mass is cellular and composed of numerous malignant cells arranged in tight clusters and distinct papillary groups. The malignant cells show mild nuclear atypia, irregular nuclear membranes and variable amounts of finely vacuolated cytoplasm. Scattered macrophages are seen in the background. The findings on this FNA correlate with those on the concurrent needle core biopsy ([id number]). Immunohistochemical workup will be performed on the biopsy to determine the histotype of the tumor. Please see biopsy report for those findings. Dr. Abiodun Miller, [facility], was notified of these findings via secure email on November 25, 2017. Electronically Signed Out Jessica Burrell M.D./[id number] Staff Pathologist Clinical History 62 y/o male with a solid 2.7cm right renal mass, 1.5cm left adrenal nodule and 0.9cm thin walled cavitary lesion in left lower lobe - scarring or infection Cancer History: The clinical presentation is suggestive of cancer Gross Description FNA performed by specialty clinic Radiologist performed a fine-needle aspiration of a 2.7cm mass of the right inferior pole kidney mass. 2 passes were performed: 4 Diff-Quick(s), 2 Pap stain(s). An adequacy check was performed. The remainder of the material was submitted in saline. Additional slides were requested and prepared: 0 cytospin(s), 0 cytospin(s) for special stains. A cellblock was prepared. A core biopsy was prepared. A total of 6 slides were given to the cytology fellow(s) on 11/22/2017. Performing Organization Address City/State/Zipcode Phone Number [place] * URINE CULTURE (11/07/2017 1:54 PM CDT) Spec Clean catch urine BT MICROBIOLOGY Description Order Comments None BT MICROBIOLOGY Culture No growth 2 days BT MICROBIOLOGY Report Status Final 11/09/2017 BT MICROBIOLOGY Specimen Urine clean catch - CLEAN CATCH URINE Performing Organization Address City/State/Zipcode Phone Number MISYS BT MICROBIOLOGY * UREA NITROGEN/CREA (09/09/2017 7:17 AM CDT) Urea Nitrogen 9 7 - 25 mg/dL BT MAIN-STATION 1 Creatinine 0.90 0.7 - 1.3 mg/dL BT MAIN-STATION 1 GFR, Estimated >60 mL/min/1.73 m2 BT MAIN-STATION 1 GFR, Estim, >60 mL/min/1.73 m2 BT MAIN-STATION Afr-Am 1 Specimen Other (Specify in Comments) Performing Organization Address City/State/Zipcode Phone Number MISYS BT MAIN-STATION 1 * TRANSTHORACIC ECHO (TTE) (09/07/2017 1:55 PM CDT) TRANSTHORACIC Transthoracic SMS ECHO (TTE) Echo Report LAW SADLER Age:62 Gender: M :1955 Exam Date: 09/07/2017 13:55 Exam Location: [facility] Echo Ordering Phys: LISA LEVY Referring Phys:LISA LEVY Reading Phys:Juan R Zhu MD Fellow Phys: Sanjiv Gomez Fellow Phys: Pottery Machine Operator: Yovani Nelson Reason For Exam: Indications: chest pain, severe COPD ICD-9 Codes: Exam Type: Transthoracic Echo Procedure CPT:12317 Addtional CPT: Ht (in): 72 BSA: 2.00HR: 86 Rhythm: Sinus rhythm Wt (lb): 174BP: 148/ 90 Technical Quality: Technically difficult and limited History: MEASUREMENTS(Male / Female) Normal Values 2D ECHO LV Diastolic Diameter PLAX4.4 cm 4.2 - 5.9 / 3.9 - 5.3 cm LV Systolic Diameter PLAX 3 cm 2.1 - 4.0 cm LV Fractional Shortening PLAX 31.8 % 25 - 46% IVS Diastolic Thickness 0.93 cm IVS Systolic Thickness 1.3 cm LVPW Diastolic Thickness0 .92 cm LVPW Systolic Thickness 1.4 cm LV Relative Wall Thickness0.42 LVOT Diameter 2.1 cm Aortic Root Diameter 3.7 cm LA Systolic Diameter LX 2.9 cm 3.0 - 4.0 / 2.7 - 3.8 cm LA Ao Ratio 0.77 LV Diastolic Volume MOD BP56.8 cm 67 - 155 / 56 - 104 cm LV Systolic Volume MOD BP 19.2 cm 22 - 58 / 19 - 49 cm LV Ejection Fraction MOD BP 66.2 % >=55% LV Stroke Volume MOD BP 37.6 cm LV Cardiac Output MOD [id number] cm/min LV Cardiac Index MOD BP 1613 cm/minm LA Volume 32.8 cm 18 - 58 / 22 - 52 cm LA Volume Index 16.4 cm/m 16 - 28 cm/m DOPPLER AV Peak Velocity 159 cm/s AV Peak Gradient 10.1 mmHg AV Mean Velocity 104 cm/s AV Mean Gradient 5 mmHg AV Velocity Time Integral 27.8 cm LVOT Peak Velocity 103 cm/s LVOT Peak Gradient 4.2 mmHg LVOT Mean Velocity 69.3 cm/s LVOT Mean Gradient 2 mmHg LVOT Velocity Time Integral 18.8 cm LVOT Stroke Volume 65.1 cm AV Area Cont Eq vti 2.3 cm AV Area Cont Eq pk 2.2 cm Mitral E Point Velocity 92.2 cm/s Mitral A Point Velocity 103 cm/s Mitral E to A Ratio 0.9 MV Deceleration Amite 409 cm/s MV Pressure Half Time 66 ms MV Area PHT 3.3 cm MV Deceleration Time 225 ms PV Peak Velocity 86.9 cm/s PV Peak Gradient 3 mmHg RVOT Peak Velocity 78.6 cm/s RVOT Peak Gradient 2.5 mmHg LV E' Lateral Velocity 8.6 cm/s Mitral E to LV E' Lateral Ratio 10.7 LV E' Septal Velocity 8.2 cm/s Mitral E to LV E' Septal Ratio11.3 FINDINGS Left Ventricle The left ventricle is normal in size. Normal LV wall thickness. LV systolic function is normal. LVEF is 55-59%. There are no regional wall motion abnormalities.There is normal LV relaxation for age with normal filling pressures. Right Ventricle The right ventricle is normal in size and systolic function. TAPSE=2 cm. Right Atrium The right atrium is normal in size. Left Atrium The left atrium is normal in size. IAS Mitral Valve Structurally normal mitral valve without significant stenosis or prolapse. There is a trace of mitral regurgitation. Aortic Valve The aortic valve is trileaflet and structurally normal. There is no aortic stenosis. There is no aortic regurgitation. Tricuspid Valve Structurally normal tricuspid valve without significant stenosis. There is trace tricuspid regurgitation.Right ventricular systolic pressure could not be calculated due to an insufficient TR jet. Pulmonic Valve The pulmonic valve is not well visualized. There is no pulmonic regurgitation. Pericardium No pericardial effusion. Aorta The aortic root is normal for BSA, measuring 3.7 cm in diameter (1.9 cm/m2). IVC The IVC is not well visualized. CONCLUSIONS The left ventricle is normal in size. Normal LV wall thickness. LV systolic function is normal. LVEF is 55-59%. There are no regional wall motion abnormalities. There is normal LV relaxation for age with normal filling pressures. Right ventricular size and systolic function are normal. Both atria are normal in size. There are no significant valvular abnormalities. Right ventricular systolic pressure could not be calculated due to an insufficient TR jet. There is no pericardial effusion. No prior study is currently available for comparison. Juan R Zhu MD (Electronically Signed) Final Date:07 Sep 2017 16:18 2D ECHO LV Diastolic Diameter PLAX4.4 cm 4.2 - 5.9 / 3.9 - 5.3 cm LV Systolic Diameter PLAX 3 cm 2.1 - 4.0 cm LV Fractional Shortening PLAX 31.8 % 25 - 46% IVS Diastolic Thickness 0.93 cm IVS Systolic Thickness 1.3 cm LVPW Diastolic Thickness0 .92 cm LVPW Systolic Thickness 1.4 cm LV Relative Wall Thickness0.42 LVOT Diameter 2.1 cm Aortic Root Diameter 3.7 cm LA Systolic Diameter LX 2.9 cm 3.0 - 4.0 / 2.7 - 3.8 cm LA Ao Ratio 0.77 LV Diastolic Volume MOD BP56.8 cm 67 - 155 / 56 - 104 cm LV Systolic Volume MOD BP 19.2 cm 22 - 58 / 19 - 49 cm LV Ejection Fraction MOD BP 66.2 % >=55% LV Stroke Volume MOD BP 37.6 cm LV Cardiac Output MOD [id number] cm/min LV Cardiac Index MOD BP 1613 cm/minm LA Volume 32.8 cm 18 - 58 / 22 - 52 cm LA Volume Index 16.4 cm/m 16 - 28 cm/m DOPPLER AV Peak Velocity 159 cm/s AV Peak Gradient 10.1 mmHg AV Mean Velocity 104 cm/s AV Mean Gradient 5 mmHg AV Velocity Time Integral 27.8 cm LVOT Peak Velocity 103 cm/s LVOT Peak Gradient 4.2 mmHg LVOT Mean Velocity 69.3 cm/s LVOT Mean Gradient 2 mmHg LVOT Velocity Time Integral 18.8 cm LVOT Stroke Volume 65.1 cm AV Area Cont Eq vti 2.3 cm AV Area Cont Eq pk 2.2 cm Mitral E Point Velocity 92.2 cm/s Mitral A Point Velocity 103 cm/s Mitral E to A Ratio 0.9 MV Deceleration Amite 409 cm/s MV Pressure Half Time 66 ms MV Area PHT 3.3 cm MV Deceleration Time 225 ms PV Peak Velocity 86.9 cm/s PV Peak Gradient 3 mmHg RVOT Peak Velocity 78.6 cm/s RVOT Peak Gradient 2.5 mmHg LV E' Lateral Velocity 8.6 cm/s Mitral E to LV E' Lateral Ratio 10.7 LV E' Septal Velocity 8.2 cm/s Mitral E to LV E' Septal Ratio11.3 Performing Organization Address City/State/[place] Phone Number SMS * CT ABDOMEN W AND W/O CONTRAST - KIDNEY (08/15/2017 12:36 PM CDT) Impressions Performed At IMPRESSION: SMS 1.Enlarging right renal mass consistent with renal cell carcinoma, now measuring 2.9 x 3.3 x 3.4 cm. 2.No regional adenopathy or findings to suggest metastatic disease. 3.Pulmonary sequestration within the left lower lobe. 4.Stable partially cavitated left lower lobe nodule, likely from prior infection/inflammation. 5.Left adrenal adenoma. Dictated By: Johann Zhang MD, 08/15/2017 1:29 PM I have reviewed the study and agree with the findings in this report. Signed By: Brenda Rascon, 08/15/2017 2:12 PM Narrative Performed At EXAM: CT Abdomen WITHOUT and WITH contrast [facility] INDICATION: renal mass COMPARISON: CT abdomen pelvis on 08/05/2016; renal ultrasound on 04/19/2017; CT chest on 10/29/2016; MRI abdomen 11/03/2016 TECHNIQUE: Abdomen and pelvis were scanned utilizing a multidetector helical scanner from the diaphragm to the pelvic brim before and after administration of IV contrast. Coronal and sagittal reformations were obtained. Renal mass protocol was performed. Scan was performed pre-, nephrographic, and 4 minute delayed phase. IV CONTRAST: 95 mL of Omnipaque 300 ORAL CONTRAST: Water RADIATION DOSE: Total DLP: 1041 mGy*cm Estimated effective dose: (DLP x 0.015 x size factor) mSv COMPLICATIONS: None FINDINGS: LINES and TUBES: None. LOWER THORAX: Geographic region of hyperlucency within the left lower lobe, which demonstrates systemic arterial supply from the descending thoracic aorta (series 2, image 15), consistent with pulmonary sequestration. There are multiple focally dilated bronchi with associated mucus impactions. The previously characterized centrally lucent lesion in the posterior basal segment left lower lobe measures 1.5 cm on today's exam (series 2, image 18), previously measuring 1.6 cm. Again this is likely secondary to sequelae from repeated infections. Calcified granuloma within the posterior right lower lobe. Thin-walled cysts along the posterior basal right lower lobe (series 2, image 6), likely sequelae from prior infection/trauma. Mild atherosclerotic calcification of the descending thoracic aorta. No new nodules or masses. Platelike atelectasis versus scarring in the bilateral lower lobes. HEPATOBILIARY: Hepatic steatosis. The right lobe measures 23 cm in craniocaudal dimension. No focal hepatic lesions.No biliary ductal dilatation. GALLBLADDER: No radiopaque stones or sludge. No wall thickening. SPLEEN: Normal in attenuation and size without mass PANCREAS: Mild fatty replacement of the pancreatic parenchyma. No focal masses or ductal dilatation. ADRENALS: Right: No nodule. Left: A 1 cm adrenal nodule within the medial limb which demonstrates less than 10 Hounsfield units on precontrast imaging, consistent with lipid adrenal adenoma (series 2, image 48). This is confirmed on MRI. KIDNEYS/URETERS: Kidneys enhance symmetrically. No hydronephrosis. Cyst/solid masses: The previously characterized mass within the interpolar region of the right kidney measures 2.9 x 3.3 x 3.4 cm and demonstrates mild heterogeneous enhancement. The lesion previously measured 2.7 x 2.2 x 2.3 cm on MRI. No new masses have developed. Stones: None. Collecting Systems: Normal. 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 The veins are patent IVC: Patent GI TRACT: The stomach is collapsed. Small bowel is normal in diameter with normal wall thickness. Large bowel: Normal in diameter with normal wall thickness. Visualized portions of the appendix is normal. LYMPH NODES: No periaortic lymph nodes. Periportal lymph nodes are prominent, measuring up to 16 mm. This is stable. VESSELS: Mild atherosclerotic calcification of the abdominal aorta and branching vessels. No aneurysmal dilatation. PERITONEUM / RETROPERITONEUM: No free air or fluid. BONES: Well marginated sclerotic, centrally lucent lesion along the superior endplate of L4, consistent with central disc herniation is stable. Scattered endplate sclerosis and anterior osteophytosis and mild disc height loss consistent with spondylolysis. No suspicious osseous lesions. SOFT TISSUES: Unremarkable. Procedure Note Interface, Rad/Mammog In - 08/15/2017 2:17 PM CDT EXAM: CT Abdomen WITHOUT and WITH contrast INDICATION: renal mass COMPARISON: CT abdomen pelvis on 08/05/2016; renal ultrasound on 04/19/2017; CT chest on 10/29/2016; MRI abdomen 11/03/2016 TECHNIQUE: Abdomen and pelvis were scanned utilizing a multidetector helical scanner from the diaphragm to the pelvic brim before and after administration of IV contrast. Coronal and sagittal reformations were obtained. Renal mass protocol was performed. Scan was performed pre-, nephrographic, and 4 minute delayed phase. IV CONTRAST: 95 mL of Omnipaque 300 ORAL CONTRAST: Water RADIATION DOSE: Total DLP: 1041 mGy*cm Estimated effective dose: (DLP x 0.015 x size factor) mSv COMPLICATIONS: None FINDINGS: LINES and TUBES: None. LOWER THORAX: Geographic region of hyperlucency within the left lower lobe, which demonstrates systemic arterial supply from the descending thoracic aorta (series 2, image 15), consistent with pulmonary sequestration. There are multiple focally dilated bronchi with associated mucus impactions. The previously characterized centrally lucent lesion in the posterior basal segment left lower lobe measures 1.5 cm on today's exam (series 2, image 18), previously measuring 1.6 cm. Again this is likely secondary to sequelae from repeated infections. Calcified granuloma within the posterior right lower lobe. Thin-walled cysts along the posterior basal right lower lobe (series 2, image 6), likely sequelae from prior infection/trauma. Mild atherosclerotic calcification of the descending thoracic aorta. No new nodules or masses. Platelike atelectasis versus scarring in the bilateral lower lobes. HEPATOBILIARY: Hepatic steatosis. The right lobe measures 23 cm in craniocaudal dimension. No focal hepatic lesions. No biliary ductal dilatation. GALLBLADDER: No radiopaque stones or sludge. No wall thickening. SPLEEN: Normal in attenuation and size without mass PANCREAS: Mild fatty replacement of the pancreatic parenchyma. No focal masses or ductal dilatation. ADRENALS: Right: No nodule. Left: A 1 cm adrenal nodule within the medial limb which demonstrates less than 10 Hounsfield units on precontrast imaging, consistent with lipid adrenal adenoma (series 2, image 48). This is confirmed on MRI. KIDNEYS/URETERS: Kidneys enhance symmetrically. No hydronephrosis. Cyst/solid masses: The previously characterized mass within the interpolar region of the right kidney measures 2.9 x 3.3 x 3.4 cm and demonstrates mild heterogeneous enhancement. The lesion previously measured 2.7 x 2.2 x 2.3 cm on MRI. No new masses have developed. Stones: None. Collecting Systems: Normal. 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 The veins are patent IVC: Patent GI TRACT: The stomach is collapsed. Small bowel is normal in diameter with normal wall thickness. Large bowel: Normal in diameter with normal wall thickness. Visualized portions of the appendix is normal. LYMPH NODES: No periaortic lymph nodes. Periportal lymph nodes are prominent, measuring up to 16 mm. This is stable. VESSELS: Mild atherosclerotic calcification of the abdominal aorta and branching vessels. No aneurysmal dilatation. PERITONEUM / RETROPERITONEUM: No free air or fluid. BONES: Well marginated sclerotic, centrally lucent lesion along the superior endplate of L4, consistent with central disc herniation is stable. Scattered endplate sclerosis and anterior osteophytosis and mild disc height loss consistent with spondylolysis. No suspicious osseous lesions. SOFT TISSUES: Unremarkable. IMPRESSION IMPRESSION: 1. Enlarging right renal mass consistent with renal cell carcinoma, now measuring 2.9 x 3.3 x 3.4 cm. 2. No regional adenopathy or findings to suggest metastatic disease. 3. Pulmonary sequestration within the left lower lobe. 4. Stable partially cavitated left lower lobe nodule, likely from prior infection/inflammation. 5. Left adrenal adenoma. Dictated By: Johann Zhang MD, 08/15/2017 1:29 PM I have reviewed the study and agree with the findings in this report. Signed By: Brenda Rascon, 08/15/2017 2:12 PM Performing Organization Address City/State/Zipcode Phone Number SMS * CREATININE POC (08/15/2017 11:48 AM CDT) Creatinine POC 0.9 0.6 - 1.3 mg/dL [facility] 1 GFR, Estimated >60 mL/min/1.73 m2 [facility] 1 GFR, Estim, >60 mL/min/1.73 m2 [facility] 1 Afr-Am Performing Organization Address City/State/Zipcode Phone Number SARAH [facility] 1 after 06/12/2017 Insurance Type Payer Benefit Subscriber ID Effective Phone Address Plan / Dates Group MEDICARE MEDICARE xxxxxxxxxx 2017-P [phone] [address] resent [id number] [place] [address] [place] [facility] [place] O CIGNA xxxxxxxxxxx 2018-P [phone] [address] resent [phone] [place] [address] HOMELESS MAXIM HOMELESS xxxxxxx 2017-7 [address] [place] [address] [place] [id number] xxxxxxxxx 2018- 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
--- OUTSIDE RECORDS SUMMARY | 2018-06-13 09:23 | XMS REPORT ---
Author [facility] Address Unknown Phone Unavailable Care Team Providers Care Snagger Name Role Phone Yuli ACEVEDO Unavailable Unavailable ADDY HELLER Unavailable Unavailable Problems This patient has no known problems. Allergies, Adverse Reactions, Alerts This patient has no known allergies or adverse reactions. Medications This patient has no known medications. Encounters Start Date/Time End Date/Time Encounter Type Admission Type Attending [facility] Facility Care Department Encounter ID 2018-06-05 00:00:00 2018-06-05 00:00:00 Outpatient [facility] [id number] 2018-05-19 00:00:00 2018-05-19 00:00:00 Outpatient [facility] [id number] 2018-05-16 00:00:00 2018-05-16 00:00:00 Outpatient [facility] [id number] 2018-04-06 00:00:00 2018-04-06 00:00:00 Outpatient [facility] [id number] 2018-04-04 10:43:53 2018-04-04 10:43:53 Outpatient [facility] [id number] 2018-04-04 10:38:22 2018-04-04 10:38:22 Outpatient [facility] [id number] 2018-04-04 09:29:23 2018-04-04 09:29:23 Outpatient [facility] [id number] 2018-03-30 12:23:51 2018-03-30 12:23:51 Outpatient [facility] [id number] 2018-03-21 09:32:41 2018-03-21 09:32:41 Outpatient [facility] [id number] 2018-03-09 00:00:00 2018-03-09 00:00:00 Outpatient [facility] [id number] 2018-02-03 00:00:00 2018-02-03 00:00:00 Outpatient [facility] [id number] 2018-01-31 00:00:00 2018-01-31 00:00:00 Outpatient [facility] [id number] 2018-01-09 00:00:00 2018-01-09 00:00:00 Outpatient [facility] [id number] 2017-12-19 00:00:00 2017-12-19 00:00:00 Outpatient [facility] [id number] 2017-12-01 12:21:22 2017-12-01 12:21:22 Outpatient [facility] [id number] 2017-11-24 13:06:48 2017-11-24 13:06:48 Outpatient [facility] [id number] 2017-11-21 07:52:26 2017-11-21 07:52:26 Outpatient [facility] [id number] 2017-11-21 07:47:18 2017-11-21 07:47:18 Outpatient [facility] [id number] 2017-11-07 12:55:43 2017-11-07 12:55:43 Outpatient [facility] [id number] 2017-09-09 07:15:39 2017-09-09 07:15:39 Outpatient [facility] [id number] 2017-09-08 13:15:55 2017-09-08 13:15:55 Outpatient [facility] [id number] 2017-09-07 13:49:09 2017-09-07 13:49:09 Outpatient [facility] [id number] 2017-08-29 00:00:00 2017-08-29 00:00:00 Outpatient [facility] [id number] 2017-08-15 09:42:23 2017-08-15 09:42:23 Outpatient [facility] [id number] 2017-08-02 09:17:50 2017-08-02 09:17:50 Outpatient [facility] [id number] 2017-08-01 00:00:00 2017-08-01 00:00:00 Outpatient [facility] [id number] 2017-07-06 00:00:00 2017-07-06 00:00:00 Outpatient [facility] [id number] 2017-07-06 00:00:00 2017-07-06 00:00:00 Outpatient [facility] [id number] 2017-06-16 12:57:43 2017-06-16 12:57:43 Outpatient [facility] [id number] 2017-06-10 10:22:44 2017-06-10 10:22:44 Outpatient [facility] [id number] 2017-06-06 08:34:51 2017-06-06 08:34:51 Outpatient [facility] [id number] 2017-06-01 13:54:20 2017-06-01 13:54:20 Outpatient [facility] [id number] 2017-05-27 12:38:38 2017-05-27 12:38:38 Outpatient [facility] [id number] 2017-05-27 08:07:54 2017-05-27 08:07:54 Outpatient [facility] [id number] 2017-05-13 08:23:00 2017-05-13 08:23:00 Outpatient [facility] [id number] 2017-05-13 00:00:00 2017-05-13 00:00:00 Outpatient [facility] [id number] 2017-05-13 00:00:00 2017-05-13 00:00:00 Outpatient [facility] [id number] 2017-05-05 09:55:12 2017-05-05 09:55:12 Outpatient [facility] [id number] 2017-05-05 00:00:00 2017-05-05 00:00:00 Outpatient [facility] [id number] 2017-04-27 09:21:39 2017-04-27 09:21:39 Outpatient [facility] [id number] 2017-04-19 08:03:00 2017-04-19 08:03:00 Outpatient [facility] [id number] 2017-03-24 08:18:12 2017-03-24 08:18:12 Outpatient [facility] [id number] 2017-03-14 08:08:08 2017-03-14 08:08:08 Outpatient [facility] [id number] 2017-02-17 07:12:38 2017-02-17 07:12:38 Outpatient [facility] [id number] 2017-01-17 11:00:20 2017-01-17 11:00:20 Outpatient [facility] [id number] 2016-12-30 00:00:00 2016-12-30 00:00:00 Outpatient [facility] [id number] 2016-12-16 08:24:24 2016-12-16 08:24:24 Outpatient [facility] [id number] 2016-11-29 11:32:06 2016-11-29 11:32:06 Outpatient [facility] [id number] 2016-11-29 00:00:00 2016-11-29 00:00:00 Outpatient [facility] [id number] 2016-11-24 00:00:00 2016-11-24 00:00:00 Outpatient [facility] [id number] 2016-11-23 10:20:29 2016-11-23 10:20:29 Outpatient [facility] [id number] 2016-11-04 11:43:22 2016-11-04 11:43:22 Outpatient [facility] [id number] 2016-11-04 08:35:12 2016-11-04 08:35:12 Outpatient [facility] [id number] 2016-11-03 12:47:59 2016-11-03 12:47:59 Outpatient [facility] [id number] 2016-10-29 14:07:22 2016-10-29 14:07:22 Outpatient [facility] [id number] 2016-10-04 10:58:28 2016-10-04 10:58:28 Outpatient [facility] [id number] 2016-10-04 10:10:46 2016-10-04 10:10:46 Outpatient [facility] [id number] 2016-09-22 10:53:54 2016-09-22 10:53:54 Outpatient [facility] [id number] 2016-08-05 08:40:49 2016-08-05 08:40:49 Outpatient [facility] [id number] 2016-08-02 14:35:10 2016-08-02 14:35:10 Outpatient [facility] [id number] 2016-08-02 13:47:54 2016-08-02 13:47:54 Outpatient [facility] [id number] Results Test Description Test Time Test Comments Text Results Atomic Results Result Comments CHEST 2 VIEWS 2018-06-07 11:19:00 [place] [address] Patient Name: ELSA SADLER MR #: [id number] : 1955 Age/Sex: 63/M Req #: [id number] Adm Physician: Ordered by: LAURYN ACEVEDO MD Report #: [id number] Location: OR Room/Bed: Procedure: [id number] DX/CHEST 2 VIEWS Exam Date: 06/07/18 Exam Time: 1015 REPORT STATUS: Signed EXAMINATION: CHEST 2 VIEWS INDICATION: Preop. Renal tumor. PREOP ORDER [id number] COMPARISON: None FINDINGS: TUBES and LINES: None. LUNGS: Lungs are well inflated. Mild chronic appearing changes in the lungs. There is no evidence of pneumonia or pulmonary edema. PLEURA: No pleural effusion or pneumothorax. HEART AND MEDIASTINUM: The cardiomediastinal silhouette is unremarkable. BONES AND SOFT TISSUES: No acute osseous lesion. Soft tissues are unremarkable. UPPER ABDOMEN: No free air under the diaphragm. IMPRESSION: No acute thoracic abnormality. Signed by: Dr. Eric Dejesus M.D. on 06/07/2018 11:19 AM Dictated By: ERIC DEJESUS MD, MD [id number] Transcribed By: DEISI on 06/07/18 1119 COPY TO: LAURYN ACEVEDO MD B-TYPE NATRIURETIC FACTOR (BNP) 2018-03-12 15:57:00 B-TYPE NATRIURETIC PEPTIDE (BEAKER) (test guhf=711) 15 pg/mL 0-100 TROPONIN [id number] 15:56:00* Test Item Value Reference Range Comments TROPONIN I (BEAKER) (test jxgt=306) < ng/mL 0.00-0.03 BASIC METABOLIC [id number] 15:49:00* Test Item Value Reference Range Comments SODIUM (BEAKER) (test gqhf=016) 138 meq/L 136-145 POTASSIUM (BEAKER) (test gzll=936) 3.9 meq/L 3.5-5.1 CHLORIDE (BEAKER) (test tfpv=147) 104 meq/L 98-107 CO2 (BEAKER) (test umtw=062) 27 meq/L 22-29 BLOOD UREA NITROGEN (BEAKER) (test ewxw=274) 7 mg/dL 7-21 CREATININE (BEAKER) (test urjv=177) 0.87 mg/dL 0.57-1.25 GLUCOSE RANDOM (BEAKER) (test loax=860) 88 mg/dL 70-105 CALCIUM (BEAKER) (test xmfn=731) 9.4 mg/dL 8.4-10.2 EGFR (BEAKER) (test umdw=8706) 108 mL/min/1.73 sq m ESTIMATED GFR IS NOT ACCURATE CREATININE CLEARANCE IN PREDICTING GLOMERULAR FILTRATION RATE. ESTIMATED GFR IS NOT APPLICABLE FOR DIALYSIS PATIENTS. RAD, CHEST, 1 VIEW, NON [id number] 15:46:00Reason for exam:->sobShould this be performed at the bedside?->NoFINAL REPORT TECHNIQUE: Frontal view of the chest. [...] is tortuous. SOFT TISSUES AND BONES: Unremarkable. IMPRESSION:The mild blunting of the left costophrenic sulcus is favored to be due to pleural scarring. A small left effusion is possible. Otherwise, no acute intrathoracic abnormality. Signed: Sj Zamudio MDReport Verified Date/Time: 03/12/2018 15:46:55 Reading Location: [address] Body Reading Room W/PLT COUNT & AUTO DIFFERENTIAL 2018-03-12 15:00:00* Test Item Value Reference Range Comments WHITE BLOOD CELL COUNT (BEAKER) (test dnwi=835) 8.0 K/ L 3.5-10.5 RED BLOOD CELL COUNT (BEAKER) (test ejyb=465) 5.04 M/ L 4.63-6.08 HEMOGLOBIN (BEAKER) (test tfsm=768) 16.4 GM/DL 13.7-17.5 HEMATOCRIT (BEAKER) (test uzfw=234) 49.0 % 40.1-51.0 MEAN CORPUSCULAR VOLUME (BEAKER) (test hgwy=038) 97.2 fL 79.0-92.2 MEAN CORPUSCULAR HEMOGLOBIN (BEAKER) (test hesd=831) 32.5 pg 25.7-32.2 MEAN CORPUSCULAR HEMOGLOBIN CONC (BEAKER) (test ykfa=478) 33.5 GM/DL 32.3-36.5 RED CELL DISTRIBUTION WIDTH (BEAKER) (test ithm=276) 12.0 % 11.6-14.4 PLATELET COUNT (BEAKER) (test oqvi=085) 229 K/CU MM 150-450 MEAN PLATELET VOLUME (BEAKER) (test hscu=790) 10.3 fL 9.4-12.4 NUCLEATED RED BLOOD CELLS (BEAKER) (test uyiv=738) 0 /100 WBC 0-0 NEUTROPHILS RELATIVE PERCENT (BEAKER) (test hblc=996) 57 % LYMPHOCYTES RELATIVE PERCENT (BEAKER) (test umva=971) 30 % MONOCYTES RELATIVE PERCENT (BEAKER) (test cctr=240) 8 % EOSINOPHILS RELATIVE PERCENT (BEAKER) (test unyy=966) 3 % BASOPHILS RELATIVE PERCENT (BEAKER) (test wfmo=848) 1 % NEUTROPHILS ABSOLUTE COUNT (BEAKER) (test jzdx=664) 4.59 K/ L 1.78-5.38 LYMPHOCYTES ABSOLUTE COUNT (BEAKER) (test uxsb=730) 2.44 K/ L 1.32-3.57 MONOCYTES ABSOLUTE COUNT (BEAKER) (test pkoe=000) 0.65 K/ L 0.30-0.82 EOSINOPHILS ABSOLUTE COUNT (BEAKER) (test djmk=134) 0.27 K/ L 0.04-0.54 BASOPHILS ABSOLUTE COUNT (BEAKER) (test iqbb=047) 0.07 K/ L 0.01-0.08 IMMATURE GRANULOCYTES-RELATIVE PERCENT (BEAKER) (test rxzc=3201) 0 % 0-1
[2018-06-13] MEDS ORDERED: CEFTRIAXONE SOD 1 GM/NS 50 ML 50 ML IV ONE (10:15)
[2018-06-13] MEDS ORDERED: MANNITOL 25% 12.5GM/50ML 50 ML ONE (11:51)
[2018-06-13] MEDS ORDERED: HYDROGEN PEROXIDE 120 ML BTL ONE (12:56)
[2018-06-13] MEDS ORDERED: THROMBIN FOR SOLN 5,000 UNIT VIAL ONE (13:52)
[2018-06-13] MEDS ORDERED: MORPHINE SULFATE INJ 4 MG/ML INJ 1ML ONE (15:24)
[2018-06-13] MEDS ORDERED: MORPHINE SULFATE 1 MG/ML 30ML PCA ONE (15:24)
[2018-06-13] MEDS ORDERED: HYDROMORPHONE 2MG/ML 2 MG/ML ML ONE ×2 (15:38→16:05)
--- OUTSIDE RECORDS SUMMARY | 2018-06-13 16:26 | XMS REPORT | Clinical Summary ---
Author Author SHANICE [employer] [facility] Address Unknown Phone Unavailable Care Team Providers Care Tiltrotor Crew Chief Name Role Phone Abiodun Jaffe MD PCP [...] Care Team Description Date Type Specialty Sanket Naylor MD COPD with acute exacerbation (HCC) (Primary [...] Taken Vital Sign Reading 03/12/2018 4:58 PM ADMINISTRATIVE RESIDENT Blood Pressure 149/90 03/12/2018 4:58 PM ADMINISTRATIVE RESIDENT Pulse 96 03/12/2018 2:15 PM ADMINISTRATIVE RESIDENT Temperature 36.7 C (98 F) 03/12/2018 4:58 PM ADMINISTRATIVE RESIDENT Respiratory Rate 26 03/12/2018 4:58 PM ADMINISTRATIVE RESIDENT Oxygen Saturation 95% - Inhaled Oxygen - Concentration 03/12/2018 2:15 PM ADMINISTRATIVE RESIDENT Weight 74.8 kg (165 lb) 03/12/2018 2:15 PM ADMINISTRATIVE RESIDENT Height 182.9 cm (6') 03/12/2018 2:15 PM ADMINISTRATIVE RESIDENT Body Mass Index 22.38 Plan of Treatment Not on file Procedures Comments Procedure Name Priority Date/Time Associated Diagnosis RHYTHM STRIP - SCAN 03/13/2018 3:04 PM ADMINISTRATIVE RESIDENT B-TYPE NATRIURETIC FACTOR STAT 03/12/2018 (BNP) 3:16 PM ADMINISTRATIVE RESIDENT TROPONIN I STAT 03/12/2018 3:16 PM ADMINISTRATIVE RESIDENT BASIC METABOLIC PANEL (7) STAT 03/12/2018 3:16 PM ADMINISTRATIVE RESIDENT XR CHEST 1 VIEW STAT 03/12/2018 PORTABLE/BEDSIDE 3:00 PM ADMINISTRATIVE RESIDENT ED ECG INTERPRETATION Routine 03/12/2018 2:50 PM ADMINISTRATIVE RESIDENT CBC W/PLT COUNT & AUTO STAT 03/12/2018 DIFFERENTIAL 2:46 PM ADMINISTRATIVE RESIDENT CBC W/PLT COUNT & AUTO STAT 03/12/2018 DIFFERENTIAL 2:46 PM ADMINISTRATIVE RESIDENT ECG 12-LEAD Routine 03/12/2018 2:09 PM ADMINISTRATIVE RESIDENT Procedure Note - Interface, External Ris In - 03/12/2018 9:52 PM ADMINISTRATIVE RESIDENT Ventricula r Rate 87 BPM Atrial Rate 87 BPM P-R Interval 122 ms QRS Duration 76 ms Q-T Interval 370 ms QTC Calculatio n(Bazett) 445 ms P Hugo 86 degrees R Hugo 86 degrees T Hugo 81 degrees Normal sinus rhythm Right atrial enlargemen t Moderate voltage criteria for LVH, may be normal variant Borderline ECG No previous ECGs available ECG 12-LEAD STAT 03/12/2018 2:09 PM ADMINISTRATIVE RESIDENT after 06/12/2017 Results * RHYTHM STRIP - SCAN (03/13/2018 3:04 PM ADMINISTRATIVE RESIDENT) Narrative Performed At * Troponin I (03/12/2018 3:16 PM ADMINISTRATIVE RESIDENT) Troponin I <0.01 0.00 - 0.03 ng/mL [facility] Specimen Blood - Arm, Right Performing Organization Address [facility] Phone Number [address] [address] [facility] * B-type Natriuretic Factor (BNP) (03/12/2018 3:16 PM ADMINISTRATIVE RESIDENT) BNP 15 0 - 100 pg/mL [facility] Specimen Blood - Arm, Right Performing Organization Address [facility] Phone Number [address] [address] [facility] * Basic Metabolic Panel (03/12/2018 3:16 PM ADMINISTRATIVE RESIDENT) Sodium 138 136 - 145 meq/L [facility] Potassium 3.9 3.5 - 5.1 meq/L [facility] Chloride 104 98 - 107 meq/L [facility] CO2 27 22 - 29 meq/L [facility] BUN 7 7 - 21 mg/dL [facility] Creatinine 0.87 0.57 - 1.25 mg/dL [facility] Glucose 88 70 - 105 mg/dL [facility] Calcium 9.4 8.4 - 10.2 mg/dL [facility] EGFR 108Comment: ESTIMATED GFR IS mL/min/1.73 sq m [facility] NOT ACCURATE CREATININE [facility] CLEARANCE IN PREDICTING GLOMERULAR FILTRATION RATE. ESTIMATED GFR IS NOT APPLICABLE FOR DIALYSIS PATIENTS. Specimen Blood - Arm, Right Performing Organization Address City/State/Zipcode Phone Number [facility] [address] [place] [address] MEDICAL CENTER * XR chest 1 view portable / bedside (03/12/2018 3:00 PM ADMINISTRATIVE RESIDENT) Narrative Performed At FINAL REPORT [facility] TECHNIQUE: Frontal view of the chest. INDICATION: [...] MD Report Verified Date/Time:03/12/2018 15:46:55 Reading Location: [address] Body Reading Room Procedure Note Interface, External Ris In - 03/12/2018 3:49 PM ADMINISTRATIVE RESIDENT FINAL REPORT TECHNIQUE: Frontal view of the [...] Report Verified Date/Time: 03/12/2018 15:46:55 Reading Location: [facility] B1 C013Y CT Body Reading Room Performing Organization Address City/State/Zipcode Phone Number [facility] * ECG/EKG Interpretation (03/12/2018 2:50 PM ADMINISTRATIVE RESIDENT) Narrative Performed At Sanket Naylor MD 03/12/20186:17 [...] count + automated diff (03/12/2018 2:46 PM ADMINISTRATIVE RESIDENT) WBC 8.0 3.5 - 10.5 K/L [facility] RBC 5.04 4.63 - 6.08 M/L [facility] Hemoglobin 16.4 13.7 - 17.5 GM/DL [facility] Hematocrit 49.0 40.1 - 51.0 % [facility] MCV 97.2 (H) 79.0 - 92.2 fL [facility] MCH 32.5 (H) 25.7 - 32.2 pg [facility] MCHC 33.5 32.3 - 36.5 GM/DL [facility] RDW 12.0 11.6 - 14.4 % [facility] Platelets 229 150 - 450 K/CU MM [facility] MPV 10.3 9.4 - 12.4 fL [facility] nRBC 0 0 - 0 /100 WBC [facility] % Neutros 57 % [facility] % Lymphs 30 % [facility] % Monos 8 % [facility] % Eos 3 % [facility] % Baso 1 % [facility] # Neutros 4.59 1.78 - 5.38 K/L [facility] # Lymphs 2.44 1.32 - 3.57 K/L [facility] # Monos 0.65 0.30 - 0.82 K/L [facility] # Eos 0.27 0.04 - 0.54 K/L [facility] # Baso 0.07 0.01 - 0.08 K/L [facility] Immature 0 0 - 1 % [facility] Granulocytes-Relative [facility] Specimen Blood - Arm, Right Performing Organization Address City/State/Zipcode Phone Number [facility] [address] [place] [address] [facility] * ECG 12 lead (03/12/2018 2:09 PM ADMINISTRATIVE RESIDENT) Narrative Performed At Ventricular Rate 87 BPM GE MUSE Atrial Rate 87 BPM P-R Interval 122 ms QRS Duration 76 ms Q-T Interval 370 ms QTC Calculation(Bazett) 445 ms P Hugo 86 degrees R Hugo 86 degrees T Hugo 81 degrees Normal sinus rhythm Right atrial enlargement Moderate voltage criteria for LVH, may be normal variant Borderline ECG No previous ECGs available Confirmed by MD Delgado Mahboob ([id number]) on 03/13/2018 12:42:19 PM Procedure Note Interface, External Ris In - 03/13/2018 12:42 PM ADMINISTRATIVE RESIDENT Ventricular Rate 87 BPM Atrial Rate 87 BPM P-R Interval 122 ms QRS Duration 76 ms Q-T Interval 370 ms QTC Calculation(Bazett) 445 ms P Hugo 86 degrees R Hugo 86 degrees T Hugo 81 degrees Normal sinus rhythm Right atrial [...] Medicare PART B MEDICAID MEDICAID xxxxxxxxx Medicaid [facility] MEDICARE MEDICARE A xxxxxxxxxxx Medicare B
[2018-06-13] MEDS ORDERED: MORPHINE SULFATE 1 MG/ML 30ML PCA IV PRN (17:15)
[2018-06-13 17:46] VITALS: BP 140/82
[2018-06-13] MEDS ORDERED: PROPOFOL IV EMULSION 10 MG/ML 20 ML VIAL ONE (17:48)
[2018-06-13] MEDS ORDERED: ONDANSETRON HCL INJ 2MG/ML 2ML 2 MG/ML VIAL ONE (17:48)
[2018-06-13] MEDS ORDERED: ROCURONIUM BROMIDE 10 MG/ML 5ML VIAL ONE (17:48)
[2018-06-13] MEDS ORDERED: SEVOFLURANE INHAL SOLN 250 ML PEN BTL ONE (17:48)
[2018-06-13] MEDS ORDERED: DEXAMETHASONE SOD PHOS INJ 4 MG/ML VIAL ONE (17:48)
[2018-06-13] MEDS ORDERED: EPHEDRINE SULFATE INJ 50 MG/10 ML SYR ONE (17:48)
[2018-06-13] MEDS ORDERED: LIDOCAINE HCL 2% LOCAL INJ 5 ML SDV VIAL INJ ONE (17:48)
--- NOTE | 2018-06-13 18:00 | NUR ---
Received patient from PACU. Patient A/O X3, even respirations on 2LNC. Bowel sounds hypoactive, skin intact, no edema. Dressing on right side of abdomen, michael drain. Dressing changed and replaced with ABD pads. SCD's in place. Morphine INSTRUMENT AND ELECTRICAL TECHNICIAN pump at bedside. R wrist IV SL. L wrist 18 gauge IV with LR @ 150 mls/hr. Ocasio in place draining rios colored urine.
[2018-06-13] MEDS ORDERED: MIDAZOLAM HCL 2 MG/2 ML VIAL ONE (18:03)
[2018-06-13] MEDS ORDERED: KETAMINE HCL INJ 50 MG/ML 10 ML VIAL ONE (18:03)
[2018-06-13] MEDS ORDERED: FENTANYL CITRATE/PF 100MCG/2 ML INJ ONE (18:03)
[2018-06-13 18:07] VITALS: BP 140/82
[2018-06-13 18:09] VITALS: BP 140/82
[2018-06-13] MEDS: DEXTROSE 5%/LACTATED RINGERS 1,000 ML IV SCH (18:44)
[2018-06-13 19:30] VITALS: BP 184/96
[2018-06-13 20:52] VITALS: BP 184/96
[2018-06-14] VITALS (8 sets, daily range): BP systolic 139–187; BP diastolic 72–92
[2018-06-14 06:05] LABS: BASOPHILS % 0.1 % (0.0-1.0); HEMATOCRIT 39.2 % (38.2-49.6); LYMPHOCYTES # (AUTO) 1.3 (1.0-3.2); LYMPHOCYTES % 13.9 % (18.0-39.1); MEAN CORPUSCULAR HEMOGLOBIN 31.1 pg (28-32); MEAN CORPUSCULAR HGB CONC 33.2 g/dL (31-35); MEAN CORPUSCULAR VOLUME 93.8 fL (81-99); MONOCYTES # (AUTO) 1.1 (0.2-0.8); MONOCYTES % 11.5 % (4.4-11.3); NEUTROPHILS # (AUTO) 7.1 (2.1-6.9); NEUTROPHILS % 74.2 % (38.7-80.0); PLATELET COUNT 195 x10e3/uL (140-360); RED BLOOD COUNT 4.18 x10e6/uL (4.3-5.7); RED CELL DISTRIBUTION WIDTH 12.2 % (11.7-14.4)
[2018-06-14 06:47] LABS: ALANINE AMINOTRANSFERASE 44 IU/L (0-55); ALBUMIN 3.2 g/dL (3.5-5.0); ALKALINE PHOSPHATASE 45 IU/L (40-150); ANION GAP 11.2 mmol/L (8-16); BLOOD UREA NITROGEN 11 mg/dL (7-26); BUN/CREATININE RATIO 11 (6-25); CALCIUM 8.5 mg/dL (8.4-10.2); CARBON DIOXIDE 26 mmol/L (22-29); CHLORIDE 103 mmol/L (98-107); CREATININE, SERUM 1.03 mg/dL (0.72-1.25); EST GLOMERULAR FILTRATION RATE > 60 ML/MIN (60-); GLUCOSE 136 mg/dL (74-118); POTASSIUM 4.2 mmol/L (3.5-5.1); SODIUM 136 mmol/L (136-145)
[2018-06-14] MEDS: DEXTROSE 5%/LACTATED RINGERS 1,000 ML IV SCH ×4 (09:30→21:44)
--- NOTE | 2018-06-14 09:34 | NUR ---
WITH STANDBY ASSIST, PT OOB TO BSC, CALL LIGHT WITHIN REACH
--- NOTE | 2018-06-14 10:17 | NUR ---
EDUCATED ABOUT IMM, SIGNED, FILED IN CHART, WITH COPY LEFT WITH FAMILY AT BEDSIDE.
--- NOTE | 2018-06-14 11:53 | NUR ---
CASE MANAGEMENT ASSESSMENT Stock Control Clerk to bedside to discuss plan of care with patient/family. CM/SW role and care transitions discussed. Anticipated discharge plan discussed along with duration of care. CM/SW discussed patients right to make decisions in care. CM/SW work hours given. Patient lives: states he's homeless, but will stay with his girlfriend for a few days after discharge Admit/Transfer: from PACU Hospital/ER visits since last admit: states "been a while" since he's been hospitalized POA/Emergency contact: sister Anabel Lyn [phone] Current/Previous Home Health: none PCP/Follow-up Care: Dr. Hakan Chow - PCP; Dr. Rodriguez - urology; CM advised pt to follow up with a MD within 7 days of discharge Current/Previous DME: none Medications (referring to index hospitalization or the first time you were in the hospital) a. Were changes made in your medications when you were in the hospital on [index hospitalization]? n/a b. Did you understand the changes? n/a c. Were you able to obtain your new medications right away? n/a d. Were you able to take your medications like the doctor wanted you to? n/a e. Did the hospital give you an accurate, easy to understand list of medications when you left? n/a Scale of 1-10 how comfortable does patient feel with disease management in outpatient settin Other Services: none Employment Status: retired Areas of Concerns: homeless, renal tumor Referral Needs: pt requesting letter to say that he's homeless so he can send to [facility]. SW to see pt. Education Needs: post operative education; medical management IMM/ENGLISH given and signed (if applicable): IMM on chart Goal for discharge: home CM/SW left business card at the bedside with contact information. Name and number was also written on the patients whiteboard. Patient verbalized understanding of discussion. CM will follow-up with ongoing discharge and transition of care needs.
--- NOTE | 2018-06-14 13:02 | NUR ---
PT REPORTS THAT HE IS HOMELESS AND NEEDS A LETTER FOR [employer], PROVIDED LETTER AND ALSO GAVE RESOURCE PACKET FOR SHELTERS AND COMMUNITY RESOURCES.
--- NOTE | 2018-06-14 14:30 | NUR ---
PT AMBULATING IN HALLWAY WITH DR AT THIS TIME. NEW ORDERS RECEIVED, ENDORSED ACCORDINGLY.
--- NOTE | 2018-06-14 19:11 | NUR ---
WALKING ROUNDS PERFORMED, RECEIVED PT LAYING SEMI FOWLERS IN BED, AAOX3, RR EVEN AND NON-LABORED, ON RA. PT HAS SOCIAL WORK COORDINATOR PUMP FOR PAIN MANAGEMENT. SOCIAL WORK COORDINATOR BUTTON WITHIN REACH. LEFT PT LAYING SEMI FOWLERS IN BED, BED IN LOW LOCKED POSITION, SIDE RAILS UPX2, CALL LIGHT AND PHONE WITHIN REACH. FAMILY AT BEDSIDE.
--- NOTE | 2018-06-14 21:00 | NUR ---
IV TO (L) WRIST NOTED TO BE PAINFUL TO PT WHEN FLUSHED AND PT REQUESTING IV BE DISCONTINUED. IV DISCONTINUED. CATHETER TIP INTACT. PRESSURE AND DRESSING APPLIED. NEW IV STARTED TO (L) FA 20G. FLUSHES WITHOUT DIFFICULTY, BLOOD RETURN NOTED.
[2018-06-15] VITALS (7 sets, daily range): BP systolic 149–184; BP diastolic 68–95
[2018-06-15] MEDS: DEXTROSE 5%/LACTATED RINGERS 1,000 ML IV SCH ×2 (04:29→09:00)
--- NOTE | 2018-06-15 05:57 | NUR ---
PRODUCTION GENERALIST DISCONTINUED PER MD ORDER.
[2018-06-15] MEDS ORDERED: HYDROCODONE/APAP 5MG-325MG TAB PO PRN (06:00)
--- NOTE | 2018-06-15 06:05 | NUR ---
MCCONNELL DISCONTINUED PER MD ORDER.
[2018-06-15] MEDS: HYDROCODONE/APAP 5MG-325MG TAB PO PRN ×3 (06:10→19:26)
[2018-06-15] MEDS: LISINOPRIL 10 MG TAB PO SCH (10:37)
--- NOTE | 2018-06-15 16:09 | NUR ---
PT AMBULATING IN HALLWAY, TOLERATING WELL.
--- NOTE | 2018-06-15 19:00 | NUR ---
WALKING ROUNDS PERFORMED, RECEIVED PT LAYING SEMI FOWLERS IN BED, AAOX3, RR EVEN AND NON-LABORED, ON RA. PT REPORTS PAIN TO (R) LATERAL ABD. INCISION NOTED TO BE CDI, OPEN TO AIR, MICKY INTACT. LEFT PT LAYING SEMI FOWLERS IN BED, BED IN LOW LOCKED POSITION, SIDE RAILS UPX2, CALL LIGHT AND PHONE WITHIN REACH.
[2018-06-16] VITALS: BP 138/79
[2018-06-16] MEDS: HYDROCODONE/APAP 5MG-325MG TAB PO PRN ×4 (00:38→17:54)
[2018-06-16 04:00] VITALS: BP 147/82
[2018-06-16 08:02] VITALS: BP 136/97
[2018-06-16] MEDS: LISINOPRIL 10 MG TAB PO SCH (09:11)
[2018-06-16 10:06] VITALS: BP 136/97
[2018-06-16 13:08] VITALS: BP 135/78
--- NOTE | 2018-06-16 16:25 | NUR ---
Call to Dr. Agarwal's service regarding plan for patient and if will be discharged today and waiting for call back
[2018-06-16 16:49] VITALS: BP 150/76
--- NOTE | 2018-06-16 16:55 | NUR ---
Patient alert and responsive, VSS, pains well managed, changed dressing to right torso, some drainage but no signs of infection noted, dressing applied, nimesh in place and wound edges well approximated, call to surgeon and on his way coming in to discharge patient. Will monitor
--- NOTE | 2018-06-16 18:51 | NUR ---
Rounds by surgeon and discharged patient, sent prescriptions to his pharmacy on file by MD, appt scheduled for f/u and patient informed with details given, discharge documentation provided, medicated for pain, IV line removed with cath tip in place and dressing applied.
--- NOTE | 2018-07-27 18:45 | Discharge Summary ---
ADMITTING DIAGNOSIS: Right renal cell carcinoma. PRINCIPAL FINAL DIAGNOSIS: Right renal cell carcinoma. SECONDARY DIAGNOSIS: Hypertension. OPERATIVE PROCEDURE PERFORMED: Right partial nephrectomy performed on 06/13/2018. HOSPITAL COURSE IN DETAIL: The patient was admitted to the hospital where he underwent the above-noted procedure. He had total blood loss of 300 mL. He was taken to the recovery room and subsequently to the floor in good condition. He had largely unremarkable postoperative course. He was started on clear liquid diet on postoperative day #1 and advanced to regular diet by postoperative day #2. Ocasio catheter was also removed on postoperative day #2 and he was noted to void without any difficulty. There was minimal blood noted in his urine. On postoperative day #3, he was afebrile with stable vital signs and thus felt ready for discharge. He was discharged home with a followup appointment to see me in the office in 5 days for staple removal and drain removal. His diet was expected to be regular. His activity was expected to be decreased given his recent surgical procedure and he was advised to do no heavy lifting or straining for 4 weeks. His condition at the time of discharge was good. MD FADUMO [place]/SANTO /[id number]
--- NOTE | 2018-08-11 17:16 | Operative Report ---
DATE OF PROCEDURE: 08/11/2018 SURGEON: Barrett Rodriguez MD PREOPERATIVE DIAGNOSIS: Right renal cell carcinoma. POSTOPERATIVE DIAGNOSIS: Right renal cell carcinoma. OPERATIVE PROCEDURE PERFORMED: Right partial nephrectomy. ANESTHESIA: General anesthesia. ESTIMATED BLOOD LOSS: 300 mL. INDICATIONS: Mr. Law Haywood is a gentleman with a long history of a right renal mass, which was ultimately biopsied and found to be consistent with renal cell carcinoma. He had delayed therapy for a while due to personal and family issues. Now presents for definitive surgical management of this problem. PROCEDURE IN DETAIL: The patient brought into the operating room, placed in supine position. After initiation of general anesthesia, was then prepped and draped in usual sterile fashion. A right subcostal incision was made sharply and dissection was carried down through the layers of the abdomen. The peritoneum was entered. The liver was smooth without any obvious lesions. The gallbladder was empty. The right kidney had a palpable lesion approximately 3 cm in maximum diameter on the anterior aspect of the superior portion of the kidney. The kidney was otherwise mobile. There was no palpable adenopathy. The left kidney was palpably normal. The Ocasio catheter balloon was palpable in the bladder. Using a combination of blunt and sharp dissection, the kidney was mobilized from the bowels anteriorly and from the back musculature posteriorly. The superior aspect of the kidney was then mobilized away from the liver. Inferiorly, the Gerota's fascial envelope was dissected off the surrounding structures and the ureter isolated. Once the kidney was completely mobilized, the vasculature was identified and the artery was surrounded with a silk suture. The region of the tumor in the kidney was then isolated. The patient received intravenous mannitol and the artery was clamped. The mass was then carefully dissected from the surrounding renal parenchyma using a combination of blunt and sharp dissection, but also taking great care to leave the capsule intact. The complete lesion was removed and sent to pathology for microscopic analysis, which proved that the margins were clear. The base of the partial nephrectomy was then oversewn using interrupted [id number] chromic sutures. Once hemostasis was obtained, Gel-Foam was placed at the base and secured to the surrounding parenchyma again using chromic sutures. The residual defect was then filled with fat. The kidney was returned to its normal anatomic position and covered with surrounding fat. A 1 inch Jordyn drain was allowed to exit through a separate stab incision just inferior to the subcostal incision on the right side. The abdomen was copiously irrigated and there was no active bleeding noted. The bowels were returned to their normal anatomical position and the abdomen was closed in layers using PDS stitch. The skin was reapproximated and closed using nimesh. The Jordyn drain was secured to the skin using a silk suture. The wound was then cleaned and dried and covered with a sterile gauze dressing. Anesthesia was reversed and the patient was transferred to a bed and taken to the postanesthesia care unit in good condition. Of note, the needle and instrument count were correct at the conclusion of the case. MD FADUMO [place]/MODYuli /[id number]
== END 2018-06-16 18:42 | disposition home or self-care (01) | DRG 658 ==
LOC: OR 09:21 → PACU V 15:23 → MED/SURG 16:36
PROVIDERS: ADMIT Urology; ATTEND Urology
PROC: 0TB00ZZ Excision of Right Kidney, Open Approach (ICD-10-PCS; principal; 2018-06-13 12:29)
DX: C64.1 Malignant neoplasm of right kidney, except renal pelvis (principal); F17.200 Nicotine dependence, unspecified, uncomplicated; Z59.0 Homelessness; I10 Essential (primary) hypertension
CPT/HCPCS: 36415; 71046; 80048; 80053; 85025; 86850; 86900; 86920; 88307; 88309; 88329; 88342; 93005; J0696; J1100; J2001; J2150; J2250; J2270; J2405

== ENCOUNTER → 2020-07-22 | Day surgery (SDC) | payer MEDICARE ==
[2020-07-18 10:23] LABS: BASOPHILS # (AUTO) 0.1 (0.0-0.1); BASOPHILS % 0.8 % (0.0-1.0); EOSINOPHILS # (AUTO) 0.2 (0.0-0.4); EOSINOPHILS % 3.9 % (0.0-6.0); HEMATOCRIT 44.6 % (38.2-49.6); HEMOGLOBIN 14.6 g/dL (14.0-18.0); LYMPHOCYTES # (AUTO) 1.9 (1.0-3.2); LYMPHOCYTES % 31.9 % (18.0-39.1); MEAN CORPUSCULAR HEMOGLOBIN 31.5 pg (28-32); MEAN CORPUSCULAR HGB CONC 32.7 g/dL (31-35); MEAN CORPUSCULAR VOLUME 96.1 fL (81-99); MONOCYTES # (AUTO) 0.4 (0.2-0.8); MONOCYTES % 6.6 % (4.4-11.3); NEUTROPHILS # (AUTO) 3.4 (2.1-6.9); NEUTROPHILS % 56.3 % (38.7-80.0); PLATELET COUNT 231 x10e3/uL (140-360); RED BLOOD COUNT 4.64 x10e6/uL (4.3-5.7)
[~2020-07-22] MED LIST changes: +BUPIVACAINE HCL 0.5% 10ML MPF VIAL INJ ONE; +IBUPROFEN200 MG PO; +IOPAMIDOL 300MG/ML 50ML INFUS..BTL IV ONE; +LIDOCAINE HCL 2% LOCAL INJ 5 ML SDV VIAL INJ ONE; +PROPOFOL IV EMULSION 10 MG/ML 20 ML VIAL ONE; +TRIAMCINOLONE ACET 40 MG/ML VIAL ONE
[2020-07-22 08:46] VITALS: BP 116/67
== END | disposition home or self-care (01) ==
LOC: OR 05:40
PROVIDERS: ATTEND Specialist
DX: M16.11 Unilateral primary osteoarthritis, right hip (principal); K21.9 Gastro-esophageal reflux disease without esophagitis; J44.9 Chronic obstructive pulmonary disease, unspecified; I10 Essential (primary) hypertension; M47.816 Spondylosis without myelopathy or radiculopathy, lumbar region; M54.2 Cervicalgia; F17.210 Nicotine dependence, cigarettes, uncomplicated; Z01.810 Encounter for preprocedural cardiovascular examination; Z01.812 Encounter for preprocedural laboratory examination; Z20.822 Contact with and (suspected) exposure to COVID-19
CPT/HCPCS: 20610; 36415; 77002; 85025; 93005; J2001; J2704; J3301; Q9967; U0002; 76000